=== PATIENT | male | born 1945 | race Caucasian/White ===

== ENCOUNTER 2017-02-02 06:33 | Inpatient (IN) | payer MEDICARE ==
[2017-01-31 07:42] VITALS: O2SAT 99
[2017-02-02] VITALS (21 sets, daily range): BP systolic 72–232; BP diastolic 60–119; PULSE 57–125; RESP 16–42; TEMP 97.6–98.6; O2SAT 85–100
[~2017-02-02] VITALS: Ht 182.9 cm; Wt 103.4 kg
[2017-02-02] MEDS ORDERED: FUROSEMIDE 100 MG/10 ML VIAL IVP ONE (06:45)
[2017-02-02] MEDS ORDERED: NITROGLYCERIN 2% OINT 1 GM PACKET TOP ONE (06:45)
[2017-02-02] MEDS ORDERED: SODIUM CHLORIDE 0.9% FLUSH 5 ML FLUSH IVF PRN ×2 (06:45→09:30)
--- NOTE | 2017-02-02 06:51 | PD ---
HPI Chief Complaint: sob Time Seen by Provider: 06:37 Travel History International Travel<30 days: No Contact w/Intl Traveler<30days: No History of Present Illness HPI Patient is a 71-year-old male with history of coronary disease, hypertension, hyperlipidemia, diabetes, CHF, GERD, and status post CABG in July,, presents to emergency room with complaints of shortness of breath. Patient reports that a few hours prior to presentation to emergency room, he woke up and felt short of breath. Patient reports that he feels as if he is fluid overloaded, reports history of CHF in the past. Patient reports that he has been feeling fine all week, patient reports that he is here visiting for bike week. PFSH Past Medical History Cardiac Catheterization: Yes Cardiovascular Problems: Yes High Cholesterol: Yes Congestive Heart Failure: Yes Coronary Artery Disease: Yes Diabetes: Yes Past Surgical History Coronary Artery Bypass Graft: Yes Social History Tobacco Use: No Allergies-Medications (Allergen,Severity, Reaction): Coded Allergies: Erythromycin (Verified Allergy, Unknown, 02/02/17) Heparin (Verified Allergy, Unknown, 02/02/17) Soma (Verified Allergy, Unknown, 02/02/17) Reported Meds & Prescriptions Reported Meds & Active Scripts Active Active Prescriptions or Reported Medications Unobtainable Review of Systems General / Constitutional: No: Fever Eyes: No: Visual changes HENT: No: Headaches Cardiovascular: Positive: Edema, No: Chest Pain or Discomfort Respiratory: Positive: Cough, Shortness of Breath Gastrointestinal: No: Abdominal Pain Genitourinary: No: Dysuria Musculoskeletal: No: Pain Skin: No Rash Neurologic: No: Weakness Psychiatric: No: Depression Endocrine: No: Polydipsia Hematologic/Lymphatic: No: Easy Bruising Physical Exam Narrative GENERAL: Patient in moderate distress SKIN: Warm and dry. Patient diaphoretic HEAD: Atraumatic. Normocephalic. EYES: Pupils equal and round. No scleral icterus. No injection or drainage. ENT: No nasal bleeding or discharge. Mucous membranes pink and moist. NECK: Trachea midline. No JVD. CARDIOVASCULAR: Tachycardic. No murmur appreciated. RESPIRATORY: Patient with rales to bilateral lung bases of lungs GASTROINTESTINAL: Abdomen soft, non-tender, nondistended. Hepatic and splenic margins not palpable. MUSCULOSKELETAL: No obvious deformities. No clubbing. No cyanosis. No edema. NEUROLOGICAL: Awake and alert. No obvious cranial nerve deficits. Motor grossly within normal limits. Normal speech. PSYCHIATRIC: Appropriate mood and affect; insight and judgment normal. Data Data Last Documented VS Vital Signs Date Time Temp Pulse Resp B/P Pulse Ox O2 Delivery O2 Flow Rate FiO2 02/02/17 06:46 100 BiPAP 02/02/17 06:46 32 100 02/02/17 06:36 97.6 125 232/119 Orders Complete Blood Count With Diff (02/02/17 06:37) Comprehensive Metabolic Panel (02/02/17 06:37) B-Type Natriuretic Peptide (02/02/17 06:37) Act Partial Throm Time (Ptt) (02/02/17 06:37) Prothrombin Time / Inr (Pt) (02/02/17 06:37) Magnesium (Mg) (02/02/17 06:37) Ckmb (Isoenzyme) Profile (02/02/17 06:37) Troponin I (02/02/17 06:37) Urinalysis - C+S If Indicated (02/02/17 06:37) Influenzae A/B Antigen (02/02/17 06:37) Blood Culture (02/02/17 06:37) Iv Access Insert/Monitor (02/02/17 06:37) Electrocardiogram (02/02/17 06:37) Ecg Monitoring (02/02/17 06:37) Oximetry (02/02/17 06:37) Oxygen Administration (02/02/17 06:37) Chest, Single Ap (02/02/17 06:37) Sodium Chloride 0.9% Flush (Ns Flush) (02/02/17 06:45) Furosemide Inj (Lasix Inj) (02/02/17 06:45) Resp Bipap / Cpap Non Invas Vt (02/02/17 06:37) Nitroglycerin 2% Oint (Nitroglycerin 2% (02/02/17 06:45) Urinary Catheter Insert/Apply (02/02/17 06:49) MDM Medical Decision Making Medical Screen Exam Complete: Yes Emergency Medical Condition: Yes Interpretation(s) EKG at 0643: Sinus tachycardia at 1 20 bpm, QT/QTc 329/400, left bundle branch block, patient presents to the ER with a previous EKG, left bundle branch block is not new Differential Diagnosis ACS, CHF exacerbation, arrhythmia, electrolyte abnormality, pneumonia, influenza Narrative Course Patient is a 71-year-old male who presents to emergency room with complaints of shortness of breath. Patient woke up 3 hours ago and felt short of breath and fluid overloaded. Patient does have a history of coronary disease, CHF, diabetes, hypertension, hyperlipidemia. Upon presentation to emergency room, patient diaphoretic, patient with rales on exam. Patient was placed on a pigs feet finisher, patient was placed on BiPAP. IV Lasix as well as nitroglycerin placed. Labs as well as x-ray chest ordered. Patient signed out to care of Dr. Silva at change of shift Scripts Unable to Obtain Active Prescriptions or Reported Meds Meliza Chand DO Feb 02, 2017 06:51
[2017-02-02 07:03] LABS: AUTOMATED NEUTROPHIL # 7.7 TH/MM3 (1.8-7.7); BASOPHIL # 0.1 TH/MM3 (0-0.2); BASOPHIL % 0.8 % (0.0-2.0); EOSINOPHIL # 0.4 TH/MM3 (0-0.4); HEMATOCRIT 45.1 % (39.0-51.0); HEMO FLAGS DIFF FINAL; LYMPH % 27.6 % (9.0-44.0); LYMPHOCYTE # 3.4 TH/MM3 (1.0-4.8); MEAN CELL VOLUME 95.9 FL (80.0-100.0); MEAN CORPUSCULAR HEMOGLOBIN 33.7 PG (27.0-34.0); MEAN CORPUSCULAR HGB CONC 35.2 % (32.0-36.0); MONO % 5.8 % (0.0-8.0); NEUT % 62.8 % (16.0-70.0); PLATELET COUNT 256 TH/MM3 (150-450); RED CELL DISTRIBUTION WIDTH 13.4 % (11.6-17.2); WHITE BLOOD COUNT 12.3 TH/MM3 (4.0-11.0)
--- NOTE | 2017-02-02 07:06 | PD ---
Physical Exam Date Seen by Provider: Feb 02, 2017 Time Seen by Provider: 07:04 Narrative The patient is a 71-year-old male was initially evaluated by the previous physician, please refer to the initial history, physical, diagnostic evaluation , and treatment modality plan. The patient was signed out at 7 AM a chest x- ray and laboratory evaluation pending for hypoxia and probable congestive heart failure exacerbation. Data Data Last Documented VS Vital Signs Date Time Temp Pulse Resp B/P Pulse Ox O2 Delivery O2 Flow Rate FiO2 02/02/17 08:37 57 132/63 100 BiPAP 100 02/02/17 06:55 34 02/02/17 06:36 97.6 Orders Complete Blood Count With Diff (02/02/17 06:37) Comprehensive Metabolic Panel (02/02/17 06:37) B-Type Natriuretic Peptide (02/02/17 06:37) Act Partial Throm Time (Ptt) (02/02/17 06:37) Prothrombin Time / Inr (Pt) (02/02/17 06:37) Magnesium (Mg) (02/02/17 06:37) Ckmb (Isoenzyme) Profile (02/02/17 06:37) Troponin I (02/02/17 06:37) Urinalysis - C+S If Indicated (02/02/17 06:37) Influenzae A/B Antigen (02/02/17 06:37) Blood Culture (02/02/17 06:37) Iv Access Insert/Monitor (02/02/17 06:37) Electrocardiogram (02/02/17 06:37) Ecg Monitoring (02/02/17 06:37) Oximetry (02/02/17 06:37) Oxygen Administration (02/02/17 06:37) Chest, Single Ap (02/02/17 06:37) Sodium Chloride 0.9% Flush (Ns Flush) (02/02/17 06:45) Furosemide Inj (Lasix Inj) (02/02/17 06:45) Resp Bipap / Cpap Non Invas Vt (02/02/17 06:37) Nitroglycerin 2% Oint (Nitroglycerin 2% (02/02/17 06:45) Urinary Catheter Insert/Apply (02/02/17 06:49) Aspirin (Aspirin) (02/02/17 07:30) CKMB (02/02/17 06:45) CKMB% (02/02/17 06:45) Enalaprilat Inj (Vasotec Inj) (02/02/17 08:00) Nitroglycerin-Dextrose Inj (Nitroglyceri (02/02/17 08:15) Admit Order (Ed Use Only) (02/02/17 09:12) Labs Laboratory Tests Test 02/02/17 06:45 White Blood Count 12.3 TH/MM3 Red Blood Count 4.70 MIL/MM3 Hemoglobin 15.9 GM/DL Hematocrit 45.1 % Mean Corpuscular Volume 95.9 FL Mean Corpuscular Hemoglobin 33.7 PG Mean Corpuscular Hemoglobin 35.2 % Concent Red Cell Distribution Width 13.4 % Platelet Count 256 TH/MM3 Mean Platelet Volume 9.1 FL Neutrophils (%) (Auto) 62.8 % Lymphocytes (%) (Auto) 27.6 % Monocytes (%) (Auto) 5.8 % Eosinophils (%) (Auto) 3.0 % Basophils (%) (Auto) 0.8 % Neutrophils # (Auto) 7.7 TH/MM3 Lymphocytes # (Auto) 3.4 TH/MM3 Monocytes # (Auto) 0.7 TH/MM3 Eosinophils # (Auto) 0.4 TH/MM3 Basophils # (Auto) 0.1 TH/MM3 CBC Comment DIFF FINAL Differential Comment Prothrombin Time 11.1 SEC Prothromb Time International 1.0 RATIO Ratio Activated Partial 25.1 SEC Thromboplast Time Urine Color LIGHT-YELLOW Urine Turbidity CLEAR Urine pH 7.0 Urine Specific [place] 1.012 Urine Protein 300 mg/dL Urine Glucose (UA) TRACE mg/dL Urine Ketones NEG mg/dL Urine Occult Blood TRACE Urine Nitrite NEG Urine Bilirubin NEG Urine Urobilinogen LESS THAN 2.0 MG/DL Urine Leukocyte Esterase NEG Urine RBC 8 /hpf Urine WBC 1 /hpf Urine Squamous Epithelial <1 /hpf Cells Urine Mucus FEW /lpf Microscopic Urinalysis Comment CULT NOT INDICATED Sodium Level 141 MEQ/L Potassium Level 4.7 MEQ/L Chloride Level 103 MEQ/L Carbon Dioxide Level 26.7 MEQ/L Anion Gap 11 MEQ/L Blood Urea Nitrogen 16 MG/DL Creatinine 0.99 MG/DL Estimat Glomerular Filtration 75 ML/MIN Rate Random Glucose 176 MG/DL Calcium Level 8.6 MG/DL Magnesium Level 1.4 MG/DL Total Bilirubin 0.8 MG/DL Aspartate Amino Transf 20 U/L (AST/SGOT) Alanine Aminotransferase 27 U/L (ALT/SGPT) Alkaline Phosphatase 104 U/L Total Creatine Kinase 218 U/L Creatine Kinase MB 4.3 NG/ML Troponin I 0.04 NG/ML B-Type Natriuretic Peptide 569 PG/ML Total Protein 8.8 GM/DL Albumin 4.4 GM/DL [facility] Medical Record Reviewed: Yes Supervised Visit with YOLETTE: No Interpretation(s) EKG reveals sinus tachycardia with a heart rate of 120. Intraventricular conduction delay with QRS of 156 ms. Chest x-ray reveals slight CHF. Laboratory Tests Test 02/02/17 06:45 White Blood Count 12.3 TH/MM3 Red Blood Count 4.70 MIL/MM3 Hemoglobin 15.9 GM/DL Hematocrit 45.1 % Mean Corpuscular Volume 95.9 FL Mean Corpuscular Hemoglobin 33.7 PG Mean Corpuscular Hemoglobin 35.2 % Concent Red Cell Distribution Width 13.4 % Platelet Count 256 TH/MM3 Mean Platelet Volume 9.1 FL Neutrophils (%) (Auto) 62.8 % Lymphocytes (%) (Auto) 27.6 % Monocytes (%) (Auto) 5.8 % Eosinophils (%) (Auto) 3.0 % Basophils (%) (Auto) 0.8 % Neutrophils # (Auto) 7.7 TH/MM3 Lymphocytes # (Auto) 3.4 TH/MM3 Monocytes # (Auto) 0.7 TH/MM3 Eosinophils # (Auto) 0.4 TH/MM3 Basophils # (Auto) 0.1 TH/MM3 CBC Comment DIFF FINAL Differential Comment Prothrombin Time 11.1 SEC Prothromb Time International 1.0 RATIO Ratio Activated Partial 25.1 SEC Thromboplast Time Urine Color LIGHT-YELLOW Urine Turbidity CLEAR Urine pH 7.0 Urine Specific [place] 1.012 Urine Protein 300 mg/dL Urine Glucose (UA) TRACE mg/dL Urine Ketones NEG mg/dL Urine Occult Blood TRACE Urine Nitrite NEG Urine Bilirubin NEG Urine Urobilinogen LESS THAN 2.0 MG/DL Urine Leukocyte Esterase NEG Urine RBC 8 /hpf Urine WBC 1 /hpf Urine Squamous Epithelial <1 /hpf Cells Urine Mucus FEW /lpf Microscopic Urinalysis Comment CULT NOT INDICATED Sodium Level 141 MEQ/L Potassium Level 4.7 MEQ/L Chloride Level 103 MEQ/L Carbon Dioxide Level 26.7 MEQ/L Anion Gap 11 MEQ/L Blood Urea Nitrogen 16 MG/DL Creatinine 0.99 MG/DL Estimat Glomerular Filtration 75 ML/MIN Rate Random Glucose 176 MG/DL Calcium Level 8.6 MG/DL Magnesium Level 1.4 MG/DL Total Bilirubin 0.8 MG/DL Aspartate Amino Transf 20 U/L (AST/SGOT) Alanine Aminotransferase 27 U/L (ALT/SGPT) Alkaline Phosphatase 104 U/L Total Creatine Kinase 218 U/L Creatine Kinase MB 4.3 NG/ML Troponin I 0.04 NG/ML B-Type Natriuretic Peptide 569 PG/ML Total Protein 8.8 GM/DL Albumin 4.4 GM/DL Last Impressions Chest X-Ray 02/02/17 0637 Signed Impressions: Service Date/Time: Thursday, February 02, 2017 06:41 - CONCLUSION: Slight CHF. KFernie Swanson MD Differential Diagnosis Differential diagnosis includes congestive heart failure, COPD, bronchitis, pneumonia, pulmonary embolism, acute coronary syndrome, pleural effusion. Narrative Course The patient was initially evaluated by the previous physician, please refer to the initial history, physical, diagnostic evaluation, and treatment modality plan. The patient was noted to be hypoxic at 88%, chest x-ray reveals what appears to be pulmonary edema. The patient was administered diuretics and placed on BiPAP with improvement of his symptoms. The patient will be admitted for hypoxia and congestive heart failure exacerbation. The patient wanted to try a trial off BiPAP, however, he was unable to tolerate nasal cannula, therefore, was placed on BiPAP. The patient's systolic blood pressure continued to be above 200 and diastolic above 100, therefore, patient was administered Vasotec. There was an improvement in the patient's blood pressure to systolic in the 130s. Therefore, nitro drip was held. Critical Care Narrative Aggregate critical care time was 35 minutes. Time to perform other separately billable procedures was not included in the critical care time. My time did not include minutes spent treating any other patients simultaneously or on activities that did not directly contribute to the patient's treatment. The services I provided to this patient were to treat and/or prevent clinically significant deterioration that could result in: Hypoxia, anoxia, congestive heart failure, flash pulmonary edema. I provided critical care services requiring my management, as noted below: Chart data review, documentation time, medication orders and management, vital sign assessments/reviewing monitor data, ordering and reviewing lab tests, ordering and interpreting/reviewing x-rays and diagnostic studies, care of the patient and discussion of the patient with the admitting physicians. Physician Communication Physician Communication The on-call medical service was paged for admission. I discussed the patient with the residents who agreed with admission. Diagnosis Primary Impression: Congestive heart failure Qualified Code: I50.9 - Acute on chronic congestive heart failure, unspecified congestive heart failure type Additional Impression: Hypoxia Admitting Information Admitting Physician Requests: Admit Condition: Stable Bola Silva MD Feb 02, 2017 07:06
[2017-02-02 07:11] LABS: APTT (PATIENT) 25.1 SEC (24.3-30.1); PROTHROMBIN TIME - PATIENT 11.1 SEC (9.8-11.6)
[2017-02-02] MEDS ORDERED: MAGN400T2 PO (07:14)
[2017-02-02] MEDS ORDERED: METF1000 PO (07:14)
[2017-02-02] MEDS ORDERED: GLIP5TAB8 PO (07:14)
[2017-02-02] MEDS ORDERED: MULT1TAB39 PO (07:14)
[2017-02-02] MEDS ORDERED: CLOP75TA PO (07:14)
[2017-02-02] MEDS ORDERED: POLYPOW5 PO (07:14)
[2017-02-02] MEDS ORDERED: FURO40TA PO (07:14)
[2017-02-02] MEDS ORDERED: IRONCAP2 PO (07:14)
[2017-02-02] MEDS ORDERED: PERC5TAB12 PO (07:14)
[2017-02-02] MEDS ORDERED: ATOR1TAB18 PO (07:14)
[2017-02-02] MEDS ORDERED: SITA1TAB2 PO (07:14)
[2017-02-02] MEDS ORDERED: DOCU100C PO (07:14)
[2017-02-02] MEDS ORDERED: ASPI1TAB69 PO (07:14)
[2017-02-02] MEDS ORDERED: PANT40TA3 PO (07:14)
[2017-02-02] MEDS ORDERED: POTA10TA8 PO (07:14)
[2017-02-02] MEDS ORDERED: SPIR25TA PO (07:14)
[2017-02-02] MEDS ORDERED: CARV6.252 PO (07:14)
[2017-02-02] MEDS ORDERED: LISI-519 PO (07:14)
--- NOTE | 2017-02-02 07:15 | RADRPT ---
EXAM DATE/TIME: 02/02/2017 06:41 [facility] COMPARISON: No previous studies available for comparison. INDICATIONS : Short of Breath MEDICAL HISTORY : Hypertension. Diabetes mellitus type II. Congestive heart failure. SURGICAL HISTORY : CABG. Cardiac Cath ENCOUNTER: Initial ACUITY: 1 day PAIN SCORE: 0/10 LOCATION: Bilateral chest FINDINGS: There is slight cardiomegaly and perivascular pulmonary edema. Focal consolidation is not seen. There is evidence for prior median sternotomy. CONCLUSION: Slight CHF. K. Vinny Swanson MD on February 02, 2017 at 7:13 Board Certified Radiologist. This report was verified electronically.
[2017-02-02 07:17] LABS: BLOOD, URINE TRACE (NEG); COMMENT (UR) CULT NOT INDICATED; CULTURE IF INDICATED CULT NOT INDICATED; GLUCOSE,URINE TRACE mg/dL (NEG); KETONE, URINE NEG (NEG); MUCUS URINE FEW /lpf (OCC); NITRITE,URINE NEG (NEG); SQUAMOUS EPITHELIAL CELL URINE <1 /hpf (0-5); URINE COLOR LIGHT-YELLOW (YELLW/STRAW)
[2017-02-02 07:18] LABS: ALT (GPT) 27 U/L (12-78); ANION GAP 11 MEQ/L (5-15); AST (GOT) 20 U/L (15-37); BICARBONATE 26.7 MEQ/L (21.0-32.0); BLOOD UREA NITROGEN 16 MG/DL (7-18); CHLORIDE 103 MEQ/L (98-107); GLOMERULAR FILTRATION RATE 75 ML/MIN (>89); MAGNESIUM 1.4 MG/DL (1.5-2.5); POTASSIUM 4.7 MEQ/L (3.5-5.1); SODIUM (NA) 141 MEQ/L (136-145)
[2017-02-02 07:25] LABS: ALKALINE PHOSPHATASE 104 U/L (45-117); CREATINE KINASE 218 U/L (39-308); TOTAL BILIRUBIN ADULT 0.8 MG/DL (0.2-1.0)
[2017-02-02] MEDS ORDERED: ASPIRIN 325 MG TAB PO ONE (07:30)
[2017-02-02 07:37] LABS: CKMB 4.3 NG/ML (0.5-3.6)
[2017-02-02] MEDS ORDERED: ENALAPRILAT 1.25 MG/ML VIAL IV PUSH ONE (08:00)
[2017-02-02] MEDS ORDERED: NITROGLYCERIN-DEXTROSE INJ 250 ML IV SCH (08:15)
--- NOTE | 2017-02-02 09:17 | HHI.HP ---
HPI Service Family Medicine Primary Care Physician No Primary Care Physician Admission Diagnosis congestive heart failure, hypoxia Diagnoses: International Travel<30 Days: No Contact w/Intl Traveler<30days: No Known Affected Area: No History of Present Illness Patient is a 71-year-old male with a PMH significant for CHF with a CABG 6 months ago, DM, HTN. Presented today due to acute onset of shortness of breath that happened at 0400 when he was walking to the bathroom. Associated with diaphoresis but no chest pain or nausea. Symptoms persisted over the next 2 hours which caused him to come to the ED. Patient reports that the last episode of similar symptoms was 6 months ago at which time he had a triple bypass. 2 days ago he did note lower extremity swelling and had some abdominal discomfort this morning. He had been eating and drinking more than usual as he is here for bike week. Patient otherwise denies any other symptoms except for dysuria that is new today. He does report that he ends up in hospital when he is on out of town trips. Symptoms have improved while being in the ED. (Bibiana Vega MD R2) Review of Systems Constitutional: COMPLAINS OF: Diaphoretic episodes, Chills, DENIES: Fever, Change in appetite Eyes: DENIES: Eye pain Ears, nose, mouth, throat: DENIES: Throat pain, Running Nose Respiratory: COMPLAINS OF: Shortness of breath Cardiovascular: COMPLAINS OF: Lower Extremity Edema, DENIES: Chest pain, Dyspnea on Exertion Gastrointestinal: COMPLAINS OF: Abdominal pain, DENIES: Black stools, Bloody stools Genitourinary: COMPLAINS OF: Dysuria, DENIES: Hematuria Musculoskeletal: DENIES: Joint pain Integumentary: DENIES: Rash Neurologic: DENIES: Headache (Bibiana Finney MD R2) Past Family Social History Past Medical History CAD with Triple CABG HTN HLD DM CHF GERD Chronic Back pain Past Surgical History Triple CABG in July, 1 cardiac stent Reported Medications Reported Meds & Active Scripts Active Reported Spironolactone 25 Mg Tab 12.5 Mg PO DAILY Januvia (Sitagliptin Phosphate) 100 Mg Tab 100 Mg PO DAILY Potassium Chloride CR (Potassium Chloride) 10 Meq Tab 20 Meq PO DAILY Polyethylene Glycol 3350 (Polyethylene Glycol 3350 (Bulk) 1 Pow Pow 17 Gm PO TID Percocet (Oxycodone-Acetaminophen) 5-325 mg Tab 1 Tab PO Q6H PRN Pantoprazole (Pantoprazole Sodium) 40 Mg Tab 40 Mg PO DAILY Multiple Vitamin/Minerals (Multiple Vitamins W/ Minerals) 1 Tab Tab 1 Tab PO DAILY Metformin (Metformin HCl) 1,000 Mg Tab 1,000 Mg PO BIDPC With meals Magnesium Oxide 400 Mg Tab 400 Mg PO DIRECTED Lisinopril 5 Mg Tab 5 Mg PO DAILY Iron Complex (Iron Combinations) 1 Cap Cap 150 Mg PO DAILY Glipizide 5 Mg Tab 5 Mg PO BIDAC Take 30 minutes before a meal Furosemide 40 Mg Tab 40 Mg PO DAILY Docusate Sodium 100 Mg Cap 100 Mg PO BID Clopidogrel (Clopidogrel Bisulfate) 75 Mg Tab 75 Mg PO DAILY Carvedilol 6.25 Mg Tab 6.25 Mg PO BID Atorvastatin (Atorvastatin Calcium) 80 Mg Tab 80 Mg PO HS Aspirin 81 Mg Tabdr 81 Mg PO DAILY (Bibiana Finney MD R2) Allergies: Coded Allergies: Erythromycin (Verified Allergy, Unknown, 02/02/17) Heparin (Verified Allergy, Unknown, 02/02/17) Soma (Verified Allergy, Unknown, 02/02/17) Family History Brother: DM Otherwise unknown Family history Social History Lives in [place] Tobacco: Quit 6mths ago, use to smoke 1ppd for many years Alcohol: On occasion Illicit: Tried marijuana for the first time last few days reportedly, otherwise denies illicit drug use. (Bibiana Finney MD R2) Physical Exam Vital Signs Vital Signs Date Time Temp Pulse Resp B/P Pulse Ox O2 Delivery O2 Flow Rate FiO2 02/02/17 08:37 57 132/63 100 BiPAP 100 02/02/17 06:55 34 BiPAP 02/02/17 06:46 100 BiPAP 02/02/17 06:46 32 100 BiPAP 100 02/02/17 06:40 100 100 02/02/17 06:36 97.6 125 42 232/119 85 Physical Exam GENERAL: This is a well-nourished, well-developed patient, in no apparent distress. Sitting in bed with BiPAP on but able to speak in complete sentences. SKIN: No rashes, ecchymoses or lesions. Cool and dry. Incision from right lower extremity venous graft site healing well but with some dry skin. EYES: Pupils equal round and reactive. Extraocular motions intact. No scleral icterus. No injection or drainage. NECK: No lymphadenopathy. CARDIOVASCULAR: Regular rate and rhythm without murmurs, gallops, or rubs. No chest pain on palpation. Sternal incision well healing. RESPIRATORY: Good air movement bilaterally. Diffuse wheezes bilaterally. Bibasilar crackles. No accessory muscle use GASTROINTESTINAL: Abdomen soft, non-tender, nondistended. No hepato-splenomegaly , or palpable masses. No guarding. MUSCULOSKELETAL: Extremities without clubbing, cyanosis, or edema. No calf tenderness. NEUROLOGICAL: Awake and alert. Motor and sensory grossly within normal limits. Normal speech. Laboratory Laboratory Tests Test 02/02/17 06:45 White Blood Count 12.3 Red Blood Count 4.70 Hemoglobin 15.9 Hematocrit 45.1 Mean Corpuscular Volume 95.9 Mean Corpuscular Hemoglobin 33.7 Mean Corpuscular Hemoglobin 35.2 Concent Red Cell Distribution Width 13.4 Platelet Count 256 Mean Platelet Volume 9.1 Neutrophils (%) (Auto) 62.8 Lymphocytes (%) (Auto) 27.6 Monocytes (%) (Auto) 5.8 Eosinophils (%) (Auto) 3.0 Basophils (%) (Auto) 0.8 Neutrophils # (Auto) 7.7 Lymphocytes # (Auto) 3.4 Monocytes # (Auto) 0.7 Eosinophils # (Auto) 0.4 Basophils # (Auto) 0.1 CBC Comment DIFF FINAL Differential Comment Prothrombin Time 11.1 Prothromb Time International 1.0 Ratio Activated Partial 25.1 Thromboplast Time Urine Color LIGHT-YELLOW Urine Turbidity CLEAR Urine pH 7.0 Urine Specific [place] 1.012 Urine Protein 300 Urine Glucose (UA) TRACE Urine Ketones NEG Urine Occult Blood TRACE Urine Nitrite NEG Urine Bilirubin NEG Urine Urobilinogen LESS THAN 2.0 Urine Leukocyte Esterase NEG Urine RBC 8 Urine WBC 1 Urine Squamous Epithelial <1 Cells Urine Mucus FEW Microscopic Urinalysis Comment CULT NOT INDICATED Sodium Level 141 Potassium Level 4.7 Chloride Level 103 Carbon Dioxide Level 26.7 Anion Gap 11 Blood Urea Nitrogen 16 Creatinine 0.99 Estimat Glomerular Filtration 75 Rate Random Glucose 176 Calcium Level 8.6 Magnesium Level 1.4 Total Bilirubin 0.8 Aspartate Amino Transf 20 (AST/SGOT) Alanine Aminotransferase 27 (ALT/SGPT) Alkaline Phosphatase 104 Total Creatine Kinase 218 Creatine Kinase MB 4.3 Troponin I 0.04 B-Type Natriuretic Peptide 569 Total Protein 8.8 Albumin 4.4 Date/Time Procedure Status Source Growth 02/02/17 06:45 Aerobic Blood Culture Received Blood Peripheral Pending 02/02/17 06:45 Anaerobic Blood Culture Received Blood Peripheral Pending (Bibiana Finney MD R2) Result Diagram: 02/02/17 0645 02/02/17 0645 Imaging Last Impressions Chest X-Ray 02/02/17 0637 Signed Impressions: Service Date/Time: Thursday, February 02, 2017 06:41 - CONCLUSION: Slight CHF. Delores. Vinny Swanson MD (Bibiana Finney MD R2) Assessment and Plan Assessment and Plan 71-year-old male with a significant history of cardiac disease and CABG. Admitted for CHF exacerbation. Code Status Full Discussed Condition With Dr. Burleson and Dr. Aquino (Bibiana Finney MD R2) Attending Attestation Patient seen and examined. Case reviewed and discussed with the resident team. Agree with plan of care as discussed with me and documented in the resident note. (Luci Aquino MD) Problem List: (1) Congestive heart failure Status: Acute Plan: Significant cardiac history with a triple bypass 6 months ago. Reports last echo showed a reduced EF of unknown percent but stated he did not require a pacemaker. Exacerbation likely due to increased salt and fluid intake. Found to be hypoxic on admission that required BiPAP. Patient able to speak in complete sentences and is in no acute distress on initial exam. -BNP elevated to around 500 with CXR showing mild CHF (poor image) -Mild Leukocytosis, continue to monitor -UA, CMP, CBC, Coag otherwise unremarkable -Blood cultures ordered: pending -Old EKG showed LBBB, Repeat also shows LBBB, troponin unremarkable * ACS evaluation -Echo ordered -Counseled about salt restriction in diet -Monitor I&O -Cardiac telemetry Medications: * Lasix 80 mg IV 1 in ED * Lasix 40 mg IV BID * Aspirin daily * Plavix * Lisinopril * Spironolactone * Lipitor * Coreg * Albuterol + Duonebs (2) Hypoxia Status: Acute Plan: Found to be hypoxic on admission that required BiPAP. -VBG ordered -Wean off of O2 (3) CAD (coronary artery disease) Status: Acute Plan: History significant for triple bypass 6 months ago. -Please see plan above (4) HTN (hypertension) Status: Chronic Plan: BP elevated on admission with a high of 232 systolic. Responded to Vasotec and is now WNL (5) DM (diabetes mellitus) Status: Chronic Plan: Held home oral medications -sliding scale (6) Nutrition, metabolism, and development symptoms Status: Acute Plan: Diet: Heart healthy with fluid and salt restrictions (1.5L and 2mg respectively) Electrolytes: Low magnesium, repeated 1 with 1GM. Restart KCL daily tomorrow Fluids: none DVT PPX: SCDs due to reported heparin allergy GI PPX: home omeprazole (Bibiana Finney MD R2) Physician Certification 2 Midnight Certification Type: Admission for Inpatient Services Order for Inpatient Services The services are ordered in accordance with Medicare regulations or non- Medicare payer requirements, as applicable. In the case of services not specified as inpatient-only, they are appropriately provided as inpatient services in accordance with the 2-midnight benchmark. Estimated LOS (days): 2 days is the estimated time the patient will need to remain in the hospital, assuming treatment plan goals are met and no additional complications. Post-Hospital Plan: Home (Bibiana Finney MD R2) Problem Qualifiers (1) Congestive heart failure: Qualified Code: I50.9 - Acute on chronic congestive heart failure, unspecified congestive heart failure type (2) DM (diabetes mellitus): Bibiana Finney MD R2 Feb 02, 2017 09:16 Luci Aquino MD Feb 02, 2017 11:25
[2017-02-02] MEDS ORDERED: ENOXAPARIN SODIUM 40 MG/0.4 ML SYRINGE SQ SCH (09:30)
[2017-02-02] MEDS ORDERED: ONDANSETRON HCL 4 MG/2 ML VIAL IV PRN (09:45)
[2017-02-02] MEDS ORDERED: hydrALAZINE HCL 20 MG/ML VIAL IV PRN (09:45)
[2017-02-02] MEDS ORDERED: ACETAMINOPHEN 325 MG TAB PO PRN ×2 (09:45→10:00)
[2017-02-02] MEDS ORDERED: GLUCAGON 1 MG/ML VIAL OTHER PRN (10:00)
[2017-02-02] MEDS ORDERED: DEXTROSE 50% IN WATER 50 ML VIAL(D50) IV PUSH PRN (10:00)
--- NOTE | 2017-02-02 10:02 | HHI.FPPN ---
Subjective Remarks Pt. seen examined and discussed with the Medicine Team. This is a 71 yo [place] here for [place], awoke this a.m. with chest pressure, SOB and diaphoresis. He had a CABG 3 months ago in [place]. He is known diabetic, hypertensive, and CHF. He brought records and has reported a recent echo, though doesn't know his EF. Denies a known excessive salt load dietary-packer, but did drink 2 large beers last night. He is staying with friends so is not in control of meals. He had CABG three-vessel 6 months ago in [place]. Now pt. feels more comfortable; chest pain has abated and he is not experiencing SOB (on BiPap). See H&P for this admission for additional historical details, including past, family and social history. Objective Vitals Vital Signs Date Time Temp Pulse Resp B/P Pulse Ox O2 Delivery O2 Flow Rate FiO2 02/02/17 08:37 57 132/63 100 BiPAP 100 02/02/17 06:55 34 BiPAP 02/02/17 06:46 100 BiPAP 02/02/17 06:46 32 100 BiPAP 100 02/02/17 06:40 100 100 02/02/17 06:36 97.6 125 42 232/119 85 Result Diagram: 02/02/17 0645 02/02/17 0645 Other Results Laboratory Tests Test 02/02/17 02/02/17 06:45 10:44 White Blood Count 12.3 TH/MM3 Red Blood Count 4.70 MIL/MM3 Hemoglobin 15.9 GM/DL Hematocrit 45.1 % Mean Corpuscular Volume 95.9 FL Mean Corpuscular Hemoglobin 33.7 PG Mean Corpuscular Hemoglobin 35.2 % Concent Red Cell Distribution Width 13.4 % Platelet Count 256 TH/MM3 Mean Platelet Volume 9.1 FL Neutrophils (%) (Auto) 62.8 % Lymphocytes (%) (Auto) 27.6 % Monocytes (%) (Auto) 5.8 % Eosinophils (%) (Auto) 3.0 % Basophils (%) (Auto) 0.8 % Neutrophils # (Auto) 7.7 TH/MM3 Lymphocytes # (Auto) 3.4 TH/MM3 Monocytes # (Auto) 0.7 TH/MM3 Eosinophils # (Auto) 0.4 TH/MM3 Basophils # (Auto) 0.1 TH/MM3 CBC Comment DIFF FINAL Differential Comment Prothrombin Time 11.1 SEC Prothromb Time International 1.0 RATIO Ratio Activated Partial 25.1 SEC Thromboplast Time Urine Color LIGHT-YELLOW Urine Turbidity CLEAR Urine pH 7.0 Urine Specific [place] 1.012 Urine Protein 300 mg/dL Urine Glucose (UA) TRACE mg/dL Urine Ketones NEG mg/dL Urine Occult Blood TRACE Urine Nitrite NEG Urine Bilirubin NEG Urine Urobilinogen LESS THAN 2.0 MG/DL Urine Leukocyte Esterase NEG Urine RBC 8 /hpf Urine WBC 1 /hpf Urine Squamous Epithelial <1 /hpf Cells Urine Mucus FEW /lpf Microscopic Urinalysis Comment CULT NOT INDICATED Sodium Level 141 MEQ/L Potassium Level 4.7 MEQ/L Chloride Level 103 MEQ/L Carbon Dioxide Level 26.7 MEQ/L Anion Gap 11 MEQ/L Blood Urea Nitrogen 16 MG/DL Creatinine 0.99 MG/DL Estimat Glomerular Filtration 75 ML/MIN Rate Random Glucose 176 MG/DL Calcium Level 8.6 MG/DL Magnesium Level 1.4 MG/DL Total Bilirubin 0.8 MG/DL Aspartate Amino Transf 20 U/L (AST/SGOT) Alanine Aminotransferase 27 U/L (ALT/SGPT) Alkaline Phosphatase 104 U/L Total Creatine Kinase 218 U/L Creatine Kinase MB 4.3 NG/ML Troponin I 0.04 NG/ML B-Type Natriuretic Peptide 569 PG/ML Total Protein 8.8 GM/DL Albumin 4.4 GM/DL Blood Gas Puncture Site I.V. Blood Gas Patient Temperature 98.6 Venous Blood pH 7.37 Venous Blood Partial Pressure 56 mmHg CO2 Venous Blood Partial Pressure 22 mmHg O2 Venous Blood HCO3 31 mmol/L Venous Blood Oxygen Saturation 29 % Venous Blood Oxygen Content 5.3 Vol % Venous Blood Base Excess 5.8 mmol/L Oxygen Delivery Device NASAL CANNULA Blood Gas Liter Flow 4 L/M Objective Remarks O. CONSTITUTIONAL/GEN: normally nourished, in NAD. On Bipap. EYES: conjunctiva normal, PERRLA, EOMI. NECK: trachea midline LUNGS: clear A-P, on Bipap.. CARDIOVASCULAR: RR without murmur or gallop. No significant edema. GI/ABD: soft without masses, without organomegaly. Protuberant, BS faint. NEURO: No focal deficits. SKIN: color normal, no rashes noted. HEME/LYMPH: no bruising, petechia or significant adenopathy MUSC: back is normal in appearance. Extremities are normal in appearance, scars RLE from CABG donor graft. PSYCH/MENTAL STATUS: Alert and oriented x 3. A/P Assessment and Plan CP, SOB and diaphoresis in male with hx CHF, CABG, DM and HTN. See orders for plan. Attending Attestation Patient seen and examined. Case reviewed and discussed with the resident team. Agree with plan of care as discussed with me and documented in the resident note. Luci Aquino MD Feb 02, 2017 10:02
[2017-02-02] MEDS ORDERED: PILL SPLITTER OTHER PRN (10:30)
[2017-02-02 10:54] LABS: BLOOD GAS VENOUS BASE EXCESS 5.8 mmol/L (-2-2); BLOOD GAS VENOUS HCO3 31 mmol/L (22-26); BLOOD GAS VENOUS O2 CONTENT 5.3 Vol % (9.0-17.0); BLOOD GAS VENOUS O2 HGB SAT 29 % (70-76); BLOOD GAS VENOUS PCO2 56 mmHg (44-48); BLOOD GAS VENOUS pH 7.37 (7.360-7.400); TEMP CORR TO 98.6
[2017-02-02 10:55] LABS: BLOOD GAS VENOUS PO2 22 mmHg (35-40); CRITICAL VALUE YES; DRAW SITE I.V.; LITER FLOW 4 L/M; OXYGEN DEVICE NASAL CANNULA; STAT YES
[2017-02-02] MEDS ORDERED: ENALAPRILAT 1.25 MG/ML VIAL IV PRN (11:00)
[2017-02-02] MEDS ORDERED: RESP: ALBUTEROL 2.5 MG/3 ML NEB (PRN) INH (11:15)
[2017-02-02 11:22] LABS: BLOOD GAS BASE EXCESS 2.9 mmol/L (-2-2); BLOOD GAS HCO3 27 mmol/L (22-26); BLOOD GAS METHEMOGLOBIN 0.7 % (0-2); BLOOD GAS O2 HGB SATURATION 95 % (90-100); BLOOD GAS OXYGEN CONTENT 17.5 Vol % (12.0-20.0); BLOOD GAS PCO2 39 mmHg (38-42); BLOOD GAS PO2 87 mmHG (61-120); TEMP CORR TO 98.6
[2017-02-02 11:23] LABS: CRITICAL VALUE NO; DRAW SITE RT RADIAL; LITER FLOW 4 L/M; NUMBER OF ARTERIAL PUNCTURES 1; OXYGEN DEVICE NASAL CANNULA; STAT YES
[2017-02-02] MEDS ORDERED: MAGNESIUM SULFATE 1 GM PREMIX 100 ML IV ONE (12:00)
[2017-02-02] MEDS: RESP: ALBUTEROL 2.5 MG/IPRATROPIUM 0.5 MG NEB (SCH) INH ×3 (12:18→21:42)
[2017-02-02] MEDS: LISINOPRIL 5 MG TAB PO SCH (13:59)
[2017-02-02] MEDS: CLOPIDOGREL 75 MG TAB PO SCH (13:59)
[2017-02-02] MEDS: CARVEDILOL 6.25 MG TAB PO SCH ×2 (13:59→21:35)
[2017-02-02] MEDS: SPIRONOLACTONE 25 MG TAB PO SCH (14:00)
[2017-02-02] MEDS: INSULIN ASPART SUPPLEMENTAL SCALE SQ SCH ×2 (16:16→21:37)
[2017-02-02] MEDS: POLYETHYLENE GLYCOL 17 GM PKG PO SCH (16:16)
--- NOTE | 2017-02-02 17:47 | EC ---
Study Study Date:02/02/2017 STUDY CONCLUSIONS SUMMARY - Left ventricle: The cavity size was mildly dilated. Wall thickness was increased in a pattern of moderate LVH. Systolic function was moderately reduced. The estimated ejection fraction was 35%. Wall motion was normal; there were no regional wall motion abnormalities. - Aortic valve: Trileaflet; mildly thickened, mildly calcified leaflets. Mild regurgitation. - Mitral valve: Mild regurgitation. - Left atrium: The atrium was mildly dilated. - Tricuspid valve: Mild regurgitation. If LV function is below 40, please consider prescribing an ACEI or ARB or document rationale for non-use. PROCEDURE DATA STUDY STATUS: Elective. Procedure: Transthoracic echocardiography. Image quality was good. Scanning was performed from the parasternal, apical, and subcostal acoustic windows. Study completion: The patient tolerated the procedure well. Transthoracic echocardiography. M-mode, complete 2D, complete spectral Doppler, and color Doppler. Height: Height: 72in. Weight: Weight: 230.5lb. Body mass index: BMI: 31.3kg/m^2. Body surface area: BSA: 2.26m^2. Patient status: Inpatient. CARDIAC ANATOMY LEFT VENTRICLE: The cavity size was mildly dilated. Wall thickness was increased in a pattern of moderate LVH. Systolic function was moderately reduced. The estimated ejection fraction was 35%. Wall motion was normal; there were no regional wall motion abnormalities. AORTIC VALVE: Trileaflet; mildly thickened, mildly calcified leaflets. Doppler: Transvalvular velocity was within the normal range. There was no stenosis. Mild regurgitation. Peak gradient: 11mm Hg (S). AORTA: Aortic root: The aortic root was normal in size. MITRAL VALVE: Structurally normal valve. Doppler: Transvalvular velocity was within the normal range. There was no evidence for stenosis. Mild regurgitation. Valve area by pressure half-time: 2.42cm^2. Indexed valve area by pressure half-time: 1.07cm^2/m^2. Mean gradient: 42mm Hg (D). LEFT ATRIUM: The atrium was mildly dilated. RIGHT VENTRICLE: The cavity size was normal. Wall thickness was normal. PULMONIC VALVE: Doppler: Transvalvular velocity was within the normal range. There was no evidence for stenosis. No regurgitation. TRICUSPID VALVE: Structurally normal valve. Doppler: Transvalvular velocity was within the normal range. Mild regurgitation. Peak gradient: 35mm Hg (D). PULMONARY ARTERY: The main pulmonary artery was normal-sized. Systolic pressure was within the normal range. RIGHT ATRIUM: The atrium was normal in size. PERICARDIUM: There was no pericardial effusion. SYSTEMIC VEINS: Inferior vena cava: The vessel was normal in size. Patient weight: 230.5lb _Ejection fraction:_ 65-75% _Fractional shortening:_ 32% up to 5Kg 5-11.5Kg 11.6-22.9Kg 23-45Kg 45-57Kg Aortic Root 7-13 <17 13-22 17-27 17-27 LA diam 6-13 <23 24-38 33-47 37-40 RVID 10-17 7-15 7-15 7-18 8-17 LVIDd 12-22 <32 24-38 33-47 37-40 LVPW 2-4 3-6 5-7 6-8 7-8 IVS 2-4 3-6 5-7 6-8 7-8 BASIC MEASUREMENTS ADULT NORMAL Left ventricle LV internal dimension, ED, chordal 51.7 mm 43-52 level, PLAX LV internal dimension, ES, chordal 34.8 mm 23-38 level, PLAX Fractional shortening, chordal level, 33 % >29 PLAX LV posterior wall thickness, ED 18.3 mm IVS/LVPW ratio, ED 0.99 <1.3 Volume, ED, MOD, 1-plane 184 ml Volume, ES, MOD, 1-plane 86 ml Ejection fraction, MOD, 1-plane 53 % Stroke volume, MOD, 1-plane 98 ml Volume index, ED, MOD, 1-plane 81 ml/m^2 Volume index, ES, MOD, 1-plane 38 ml/m^2 Stroke index, MOD, 1-plane 43.4 ml/m^2 Ventricular septum Septal thickness, ED 18.2 mm Aortic valve Leaflet separation 18 mm 15-26 Left atrium Anterior-posterior dimension 41 mm Anterior-posterior dimension index 1.81 cm/m^2 <2.2 BASIC MEASUREMENTS ADULT NORMAL Aortic valve Leaflet separation 18 mm 15-26 Aorta Root diameter, ED 28 mm 20-37 DOPPLER MEASUREMENTS ADULT NORMAL Aortic valve Peak velocity, S 167 cm/s VTI, S 163 cm Peak gradient, S 11 mm Hg Regurgitant velocity, ED 306 cm/s Regurgitant deceleration 1690 cm/s^2 Regurgitant pressure half-time 529 ms Regurgitant gradient, ED 37 mm Hg Mitral valve Peak E-wave velocity 60.2 cm/s Peak A-wave velocity 89.3 cm/s Mean velocity, D 301 cm/s Pressure half-time 91 ms Mean gradient, D 42 mm Hg Peak E/A ratio 0.7 Valve area, pressure half-time 2.42 cm^2 Valve area index, pressure half-time 1.07 cm^2/m^2 Tricuspid valve Peak gradient, D 35 mm Hg Maximal inflow velocity 294 cm/s Systemic veins Estimated CVP 10 mm Hg Pulmonic valve Peak velocity, S 118 cm/s LEGEND: Mean values are shown as u=mean value. Asterisk (*) alberto values outside specified normal range. Prepared and signed by Amisha Wise [id number]
[2017-02-02] MEDS ORDERED: FUROSEMIDE 40 MG/4 ML VIAL IVP SCH (18:00)
[2017-02-02] MEDS: FUROSEMIDE 40 MG/4 ML VIAL IVP SCH (18:34)
--- NOTE | 2017-02-02 19:44 | EKG ---
Date Performed: 02/02/2017 Time Performed: 06:42:20 PTAGE: 71 years EKG: SINUS TACHYCARDIA INTRAVENTRICULAR CONDUCTION DELAY ABNORMAL ECG NO PREVIOUS TRACING DOCTOR: Amisha Wise Interpretating Date/Time 02/02/2017 19:43:06
[2017-02-02] MEDS ORDERED: CARVEDILOL 6.25 MG TAB PO SCH (21:00)
[2017-02-02] MEDS: SODIUM CHLORIDE 0.9% FLUSH 5 ML FLUSH IVF SCH (21:33)
[2017-02-02] MEDS: ATORVASTATIN 80 MG TAB PO SCH (21:33)
[2017-02-02] MEDS: DOCUSATE SODIUM 100 MG CAP PO SCH (21:33)
--- NOTE | 2017-02-02 22:30 | HHI.FPPN ---
Addendum to progress note ADDENDUM Reason for addendum: Additonal documentation Additional information Subjective: Residents were paged about pt's 3rd troponin which was elevated at 0.42. Previous troponins were 0.04 and 0.19. I stopped by to see the pt who was asymptomatic. He had no chest pain or shortness of breath and was breathing comfortably on 2L by NC. He was previously on BiPAP. Objective: Vitals were 97.9F, 141/60, 57 HR, 16 RR, 96% on RA (taken at 11pm) General: Sleeping comfortably in bed, awoken easily for examination Lungs: CTAB. No accessory muscle use Heart: Regular rate and rhythm, no murmurs rubs or gallops Assessment: 71-year-old male with a significant history of cardiac disease and CABG admitted for CHF exacerbation now with elevated troponin that have consistently increased on trend. Patient remains asymptomatic with no chest pain or shortness of breath symptoms. Plan: -EKG was obtained and did not show ST elevation. Possible AFIB but some low voltage discernible P-waves. -Cardiology consult due increased troponin that more than doubled over a 6-hour period. However, since the patient was asymptomatic, we decided not to call the on-call metal sprayer. Patient does have a history of left bundle branch block and presented with CHF exacerbation which could account for his elevated troponins. Discussed with Dr. Wilmer Newby,Debo Sanches MD R1 Feb 02, 2017 22:30
[2017-02-03] VITALS (30 sets, daily range): BP systolic 120–162; BP diastolic 53–79; PULSE 52–78; RESP 16–18; TEMP 97.4–98.5; O2SAT 94–97
[2017-02-03] MEDS: RESP: ALBUTEROL 2.5 MG/IPRATROPIUM 0.5 MG NEB (SCH) INH ×4 (03:42→21:09)
[2017-02-03] MEDS: INSULIN ASPART SUPPLEMENTAL SCALE SQ SCH ×4 (06:25→21:05)
[2017-02-03 06:56] LABS: AUTOMATED NEUTROPHIL # 6.3 TH/MM3 (1.8-7.7); BASOPHIL # 0.1 TH/MM3 (0-0.2); BASOPHIL % 0.6 % (0.0-2.0); EOSINOPHIL # 0.2 TH/MM3 (0-0.4); EOSINOPHIL % 2.5 % (0.0-4.0); HEMO FLAGS DIFF FINAL; LYMPH % 17.6 % (9.0-44.0); LYMPHOCYTE # 1.5 TH/MM3 (1.0-4.8); MEAN CELL VOLUME 95.3 FL (80.0-100.0); MEAN CORPUSCULAR HEMOGLOBIN 33.6 PG (27.0-34.0); MEAN CORPUSCULAR HGB CONC 35.3 % (32.0-36.0); MONO % 7.1 % (0.0-8.0); NEUT % 72.2 % (16.0-70.0); PLATELET COUNT 172 TH/MM3 (150-450); RED BLOOD COUNT 3.56 MIL/MM3 (4.50-5.90); RED CELL DISTRIBUTION WIDTH 13.3 % (11.6-17.2); WHITE BLOOD COUNT 8.7 TH/MM3 (4.0-11.0)
[2017-02-03 07:27] LABS: BICARBONATE 29.8 MEQ/L (21.0-32.0); POTASSIUM 3.4 MEQ/L (3.5-5.1)
[2017-02-03] MEDS: PANTOPRAZOLE SOD 40 MG DELAYED RELEASE TAB PO SCH (08:11)
[2017-02-03] MEDS: SPIRONOLACTONE 25 MG TAB PO SCH (08:12)
[2017-02-03] MEDS: ASPIRIN EC 81 MG TABEC PO SCH (08:12)
[2017-02-03] MEDS: CLOPIDOGREL 75 MG TAB PO SCH (08:12)
[2017-02-03] MEDS: DOCUSATE SODIUM 100 MG CAP PO SCH ×2 (08:12→21:04)
[2017-02-03] MEDS: POLYETHYLENE GLYCOL 17 GM PKG PO SCH (08:12)
[2017-02-03] MEDS: CARVEDILOL 6.25 MG TAB PO SCH ×2 (08:12→21:04)
[2017-02-03] MEDS: FUROSEMIDE 40 MG/4 ML VIAL IVP SCH (08:13)
[2017-02-03] MEDS: SODIUM CHLORIDE 0.9% FLUSH 5 ML FLUSH IVF SCH ×2 (08:13→21:05)
[2017-02-03] MEDS: LISINOPRIL 5 MG TAB PO SCH (08:14)
[2017-02-03] MEDS ORDERED: LISINOPRIL 5 MG TAB PO SCH (09:00)
[2017-02-03] MEDS ORDERED: ASPIRIN 81 MG CHEW TAB CHEW SCH (09:00)
[2017-02-03] MEDS ORDERED: CLOPIDOGREL 75 MG TAB PO SCH (09:00)
[2017-02-03] MEDS ORDERED: POTASSIUM CHLORIDE 10 MEQ CAP PO SCH (09:00)
[2017-02-03] MEDS ORDERED: SPIRONOLACTONE 25 MG TAB PO SCH (09:00)
--- NOTE | 2017-02-03 11:45 | HHI.FPPN ---
Subjective Remarks No acute events overnight but night team did evaluate patient as his troponins did trend upward but he remained asymptomatic. Vital signs unremarkable with exception of this morning with a high systolic BP of 162. Patient is currently on room air with adequate saturation. This morning he reports feeling much better and is ready to go. Denies any chest pain. Has no complaints and only wants to eat his breakfast. (Bibiana Finney MD R2) Objective Vitals Vital Signs Date Time Temp Pulse Resp B/P Pulse Ox O2 Delivery O2 Flow Rate FiO2 02/03/17 10:00 61 02/03/17 09:26 96 21 02/03/17 09:00 59 02/03/17 08:24 95 Room Air 02/03/17 08:18 97.7 60 18 162/79 95 02/03/17 08:00 58 02/03/17 07:36 66 02/03/17 06:03 56 02/03/17 05:08 57 02/03/17 04:00 62 02/03/17 03:45 97.4 61 16 147/62 95 02/03/17 03:43 95 Nasal Cannula 2.00 02/03/17 03:15 60 02/03/17 02:07 53 02/03/17 01:11 59 02/03/17 00:00 54 02/02/17 23:30 97.9 57 16 141/60 96 02/02/17 23:16 60 02/02/17 23:00 61 02/02/17 22:00 58 02/02/17 21:42 92 Nasal Cannula 2.00 02/02/17 21:00 58 02/02/17 20:00 98.6 61 16 147/63 95 02/02/17 20:00 95 Nasal Cannula 2.00 02/02/17 20:00 58 02/02/17 19:25 61 02/02/17 19:00 60 02/02/17 16:00 58 02/02/17 15:55 98.2 59 16 72/80 96 02/02/17 15:55 59 02/02/17 15:55 59 02/02/17 15:00 60 02/02/17 14:00 66 144/67 02/02/17 14:00 62 02/02/17 13:00 98.0 68 18 163/80 98 02/02/17 13:00 68 02/02/17 13:00 64 02/02/17 13:00 98 Nasal Cannula 2.00 02/02/17 12:25 132/62 97 02/02/17 12:18 92 Nasal Cannula 2.00 I/O 02/02/17 02/02/17 02/02/17 02/03/17 02/03/17 02/03/17 07:00 15:00 23:00 07:00 15:00 23:00 Intake Total 850 ml 240 ml Output Total 1800 ml 1250 ml Balance -950 ml -1010 ml Intake Oral 850 ml 240 ml Output Urine Total 1800 ml 1250 ml # Bowel Movements 0 (Bibiana Finney MD R2) Result Diagram: 02/03/17 0600 02/03/17 06 Objective Remarks GEN: Well-developed, well-nourished patient. No acute distress. Sitting up in bed. CV: Distant heart sounds but with regular rate and rhythm without obvious murmurs. LUNGS: Distant breath sounds but clear to auscultation bilaterally. No wheezes, rales, rhonchi. No accessory muscle use. EXT: No edema. No calf tenderness. NEURO/PSYCH: Awake, alert. Appropriate insight and judgment. Normal speech ( Bibiana Finney MD R2) A/P Assessment and Plan 71-year-old male with a significant history of cardiac disease and CABG. Admitted for CHF exacerbation. Discharge Planning Today or tomorrow pending cardiology clearance (Bibiana Finney MD R2) Attending Attestation Patient seen and examined. Case reviewed and discussed with the resident team. Agree with plan of care as discussed with me and documented in the resident note. (Luci Aquino MD) Problem List: (1) Congestive heart failure Status: Acute Plan: Significant cardiac history with a triple bypass 6 months ago. Exacerbation likely due to increased salt and fluid intake. Found to be hypoxic on admission that required BiPAP but has now been weaned to room air in no respiratory distress. -Echo: EF of 35%. -BNP elevated to around 500 with CXR showing mild CHF (poor image) -Mild Leukocytosis has resolved -Blood cultures negative 1 day -Old EKG showed LBBB * ACS evaluation showed uptrending troponins but did decrease this morning. Patient was otherwise asymptomatic throughout the night. Likely due to CHF -Monitor I&O -Cardiac telemetry Cardiology consulted: appreciate recommendations Medications: * Lasix 80 mg IV 1 in ED * Lasix 40 mg IV BID discontinued, resume home Lasix 40 daily * Aspirin daily * Plavix * Lisinopril * Spironolactone * Lipitor * Coreg * Albuterol + Duonebs (2) Hypoxia Status: Resolved Plan: Found to be hypoxic on admission that required BiPAP. -VBG/ABG grossly unremarkable (3) CAD (coronary artery disease) Status: Acute Plan: History significant for triple bypass 6 months ago. -Please see plan above (4) HTN (hypertension) Status: Chronic Plan: Continuing home medications -Vasotec as needed (5) DM (diabetes mellitus) Status: Chronic Plan: Held home oral medications -sliding scale (6) Nutrition, metabolism, and development symptoms Status: Acute Plan: Diet: Heart healthy with fluid and salt restrictions (1.5L and 2mg respectively) Electrolytes: Mild hypokalemia, KCl 40 mEq 1, resume potassium replacement 40KCL daily Fluids: none DVT PPX: SCDs due to reported heparin allergy GI PPX: home omeprazole (Bibiana Finney MD R2) Problem Qualifiers (1) Congestive heart failure: Qualified Code: I50.9 - Acute on chronic congestive heart failure, unspecified congestive heart failure type (2) DM (diabetes mellitus): Bibiana Finney MD R2 Feb 03, 2017 11:45 Luci Aquino MD Feb 03, 2017 12:03
--- NOTE | 2017-02-03 11:48 | HHI.DCPOC ---
Discharge Care Plan Diagnosis: (1) Congestive heart failure (2) Hypoxia (3) CAD (coronary artery disease) Goals to Promote Your Health * To prevent worsening of your condition and complications * To maintain your health at the optimal level Directions to Meet Your Goals Take your medications as prescribed Follow your dietary instruction Follow activity as directed Keep your appointments as scheduled Take your immunizations and boosters as scheduled If your symptoms worsen call your PCP, if no PCP go to Urgent Care Center or Emergency Room Smoking is Dangerous to Your Health. Avoid second hand smoke Call the 24-hour hour crisis hotline for domestic abuse at Bibiana Finney MD R2 Feb 03, 2017 11:48
--- NOTE | 2017-02-03 13:54 | EKG ---
Date Performed: 02/02/2017 Time Performed: 22:29:08 PTAGE: 71 years EKG: Sinus bradycardia with borderline 1st degree A-V block Left bundle branch block Abnormal EC G PREVIOUS TRACING : 02/02/2017 06.42 DOCTOR: Stephan Gonzalez Interpretating Date/Time 02/03/2017 13:50:00
--- NOTE | 2017-02-03 20:13 | MB ---
cc: WALDO MONTALVO DATE OF CONSULTATION: 02/03/2017. HISTORY OF PRESENT ILLNESS: Mr. Peers is a 71-year-old white male with a history of three-vessel coronary bypass six months ago. He had shortness of breath but no chest pain prior to the bypass. He presented today after he developed acute shortness of breath at four o'clock this morning when he was walking to the bathroom. He has not had any chest pain. He was having similar episodes prior to his surgery. He has been noncompliant with his low-salt diet since he has been travelling from [place] for the [employer]. His symptoms improved with diuresis. His troponin is mildly elevated. PAST MEDICAL HISTORY: His past medical history is positive for: 1. Coronary artery disease status post three vessel bypass six months ago in [place]. 2. Hypertension. 3. Dyslipidemia. 4. Diabetes mellitus. 5. Congestive heart failure. 6. Gastroesophageal reflux disease (GERD). 7. Chronic back pain. 8. Cardiomyopathy. 9. History of coronary stenting prior to the triple bypass in July of 2016. MEDICATIONS AT HOME: His medications at home include: 1. Spironolactone. 2. Januvia. 3. Potassium. 4. Polyethylene glycol. 5. Percocet. 6. Pantoprazole. 7. A multivitamin. 8. Metformin. 9. Magnesium oxide. 10. Lisinopril. 11. Iron complex. 12. Glipizide. 13. Furosemide. 14. Docusate. 15. Clopidogrel. 16. Carvedilol. 17. Atorvastatin. 18. Aspirin. ALLERGIES: 1. ERYTHROMYCIN. 2. HEPARIN. 3. SOMA. SOCIAL HISTORY: The patient does not smoke. He quit smoking six months ago. He drinks alcohol occasionally. He is travelling from [place] to the [employer]. FAMILY HISTORY: Negative for heart disease. REVIEW OF SYSTEMS: The review of systems is otherwise negative. PHYSICAL EXAMINATION: VITAL SIGNS: Blood pressure 120/66, pulse 57 and regular. HEAD, EYES, EARS, NOSE, THROAT: Negative. NECK: 2+ carotid upstrokes, no bruits. LUNGS: Clear. HEART: Regular with no murmurs, rubs or gallops. ABDOMEN: Abdomen soft. EXTREMITIES: With trace edema. 1 to 2+ distal pulses. NEUROLOGIC: Grossly nonfocal. CARDIOLOGY STUDIES: EKG was reviewed and showed sinus tachycardia and left bundle branch block. Echocardiogram showed moderate left ventricular dysfunction with an ejection fraction of 35% with moderate global hypokinesis. LABS: Hemoglobin 12.0. Potassium 3.4, creatinine 0.9. Troponin 0.04, 0.19, 0.42 and 0.23. BNP 569. DIAGNOSIS: 1. Acute exacerbation of chronic systolic congestive heart failure. 2. Ischemic cardiomyopathy with moderate left ventricular systolic function. 3. Coronary artery disease with history of three-vessel coronary bypass. 4. Mildly abnormal troponin. 5. Hypertension. 6. Diabetes mellitus. DISPOSITION: Mr. Peres will continue his current medical program for congestive heart failure. We will continue aggressive management of his cardiac risk factors. We will obtain an adenosine myocardial perfusion study tomorrow to evaluate for ischemia. I will follow him for cardiology during his hospitalization. He will then follow up with his blow mold technician in [place] after discharge. MD TIKI Tom/SWETA /6:31 PM /8:00 PM AURY
[2017-02-03] MEDS: ATORVASTATIN 80 MG TAB PO SCH (21:04)
[2017-02-04] VITALS (16 sets, daily range): BP systolic 147–155; BP diastolic 65–79; PULSE 51–63; RESP 16–18; TEMP 97.5–98.4; O2SAT 94–97
[2017-02-04] MEDS: RESP: ALBUTEROL 2.5 MG/IPRATROPIUM 0.5 MG NEB (SCH) INH ×3 (03:43→15:46)
[2017-02-04] MEDS: INSULIN ASPART SUPPLEMENTAL SCALE SQ SCH ×2 (06:17→11:00)
[2017-02-04] MEDS ORDERED: FUROSEMIDE 40 MG/4 ML VIAL IV PUSH ONE (08:30)
[2017-02-04] MEDS: CLOPIDOGREL 75 MG TAB PO SCH (08:57)
[2017-02-04] MEDS: DOCUSATE SODIUM 100 MG CAP PO SCH (08:57)
[2017-02-04] MEDS: CARVEDILOL 6.25 MG TAB PO SCH (08:57)
[2017-02-04] MEDS: LISINOPRIL 5 MG TAB PO SCH (08:57)
[2017-02-04] MEDS: PANTOPRAZOLE SOD 40 MG DELAYED RELEASE TAB PO SCH (08:57)
[2017-02-04] MEDS: SPIRONOLACTONE 25 MG TAB PO SCH (08:57)
[2017-02-04] MEDS: ASPIRIN EC 81 MG TABEC PO SCH (08:58)
[2017-02-04] MEDS: POLYETHYLENE GLYCOL 17 GM PKG PO SCH (08:58)
[2017-02-04] MEDS: SODIUM CHLORIDE 0.9% FLUSH 5 ML FLUSH IVF SCH (08:58)
[2017-02-04] MEDS ORDERED: FUROSEMIDE 40 MG TAB PO SCH (09:00)
[2017-02-04] MEDS ORDERED: POTASSIUM CHLORIDE 20 MEQ CONTROLLED RELEASE TAB PO SCH (09:00)
--- NOTE | 2017-02-04 09:22 | HHI.FPPN ---
Subjective Remarks No acute events overnight. Vital signs unremarkable. This morning patient states that he continues to feel well and denies any chest pain or respiratory distress. He is ready to go once cleared by the stress test. (Bibiana Finney MD R2) Objective Vitals Vital Signs Date Time Temp Pulse Resp B/P Pulse Ox O2 Delivery O2 Flow Rate FiO2 02/04/17 07:12 59 02/04/17 06:02 55 02/04/17 05:00 61 02/04/17 04:51 61 02/04/17 03:15 97.5 63 16 149/68 96 02/04/17 03:01 60 02/04/17 02:09 58 02/04/17 01:06 60 02/04/17 00:00 63 02/03/17 23:15 97.6 64 16 125/64 97 02/03/17 23:01 62 02/03/17 22:28 61 02/03/17 21:00 56 02/03/17 20:00 58 02/03/17 20:00 97.6 54 18 143/62 95 02/03/17 19:25 94 21 02/03/17 19:00 58 02/03/17 18:37 64 02/03/17 17:30 57 02/03/17 16:41 57 02/03/17 15:00 97.7 55 18 120/66 97 02/03/17 15:00 58 02/03/17 14:57 55 02/03/17 13:32 57 02/03/17 12:00 52 02/03/17 11:00 57 02/03/17 11:00 98.5 78 18 139/53 96 02/03/17 10:00 61 02/03/17 09:26 96 21 I/O 02/03/17 02/03/17 02/03/17 02/04/17 02/04/17 02/04/17 06:59 14:59 22:59 06:59 14:59 22:59 Intake Total 240 ml 720 ml 700 ml Output Total 1250 ml 1200 ml 725 ml Balance -1010 ml -480 ml -25 ml Intake Oral 240 ml 720 ml 700 ml IV Total 0 ml Output Urine Total 1250 ml 1200 ml 725 ml # Bowel Movements 1 (Bibiana Finney MD R2) Result Diagram: 02/03/17 0602/03/17 06 Objective Remarks GEN: Well-developed, well-nourished patient. No acute distress. Sitting up in bed. CV: Regular rate and rhythm without obvious murmurs. S3 heard this morning. LUNGS: Good air movement bilaterally but with bibasilar crackles. No accessory muscle use. EXT: No edema. NEURO/PSYCH: Awake, alert. Appropriate insight and judgment. Normal speech ( Bibiana Finney MD R2) A/P Assessment and Plan 71-year-old male with a significant history of cardiac disease and CABG. Admitted for CHF exacerbation. Discharge Planning Today after stress test and clearance by cardiology wdw Dr. Aquino (Bibiana Finney MD R2) Attending Attestation Patient seen and examined. Case reviewed and discussed with the resident team. Agree with plan of care as discussed with me and documented in the resident note. (Luci Aquino MD) Problem List: (1) Congestive heart failure Status: Acute Plan: Significant cardiac history with a triple bypass 6 months ago. Exacerbation likely due to increased salt and fluid intake. Found to be hypoxic on admission that required BiPAP but has now been weaned to room air and no respiratory distress. -Echo: EF of 35%. -BNP elevated to around 500 with CXR showing mild CHF (poor image) -Mild Leukocytosis has resolved -Blood cultures negative 1 day -Old EKG showed LBBB * ACS evaluation showed uptrending troponins but did decrease on the morning of 02/03. Likely due to CHF -Monitor I&O -Cardiac telemetry Cardiology consulted: appreciate recommendations * Adenosine myocardial perfusion study * f/u with cardiology in [place] Medications: * Lasix 40mg IV x1 today * Resume home Lasix 40 daily * Aspirin daily * Plavix * Lisinopril * Spironolactone * Lipitor * Coreg * Albuterol + Duonebs (2) CAD (coronary artery disease) Status: Acute Plan: History significant for triple bypass 6 months ago. -Please see plan above (3) HTN (hypertension) Status: Chronic Plan: Continuing home medications -Vasotec as needed (4) DM (diabetes mellitus) Status: Chronic Plan: Held home oral medications -sliding scale (5) Nutrition, metabolism, and development symptoms Status: Acute Plan: Diet: Heart healthy with fluid and salt restrictions (1.5L and 2mg respectively) Electrolytes: Mild hypokalemia, resume potassium replacement 20KCL daily Fluids: none DVT PPX: SCDs due to reported heparin allergy GI PPX: home omeprazole (Bibiana Finney MD R2) Problem Qualifiers (1) Congestive heart failure: Qualified Code: I50.9 - Acute on chronic congestive heart failure, unspecified congestive heart failure type (2) DM (diabetes mellitus): Bibiana Finney MD R2 Feb 04, 2017 09:22 Luci Aquino MD Feb 04, 2017 13:52
[2017-02-04] MEDS ORDERED: REGADENOSON INJ 0.4 MG/5 ML SYR ONE (10:39)
--- NOTE | 2017-02-04 11:53 | RADRPT ---
EXAM DATE/TIME: 02/04/2017 10:08 [place] COMPARISON: No previous studies available for comparison. INDICATIONS : Shortness of breath for 2 days. Cardiomyopathy. Coronary artery disease. Congestive heart failure. DOSE: 30.1 mCi Tc99m Myoview at stress. 10.1 mCi Tc99m Myoview at rest. 0.4 mg Lexiscan STRESS SYMPTOMS: Chest heaviness and dyspnea. EJECTION FRACTION: 34% MEDICAL HISTORY : Diabetes mellitus type 2. Hypertension. Hyperparathyroidism. SURGICAL HISTORY : Coronary artery stent. CABG ENCOUNTER: Initial ACUITY: 2 days PAIN SCALE: 2/10 LOCATION: Bilateral chest TECHNIQUE: The patient underwent pharmacologic stress with infusion of prescribed dose. Continuous ECG tracing was monitored during stress. Gated SPECT imaging was performed after stress and conventional SPECT i maging was performed at rest. The examination was performed on a SPECT/CT scanner, both attenuation and non-corrected datasets were reviewed. FINDINGS: DISTRIBUTION: The maximum perfused segment at stress is in the anterior wall. PERFUSION STUDY: No areas of ischemia are seen. There is decreased matched activity on the stress and rest images at t he upper septum and the inferior and inferolateral pinto. GATED STUDY: There is global hypokinesis with a reduced ejection fraction. There some minimal dyskinesis at the up per septum. CONCLUSION: No areas of ischemia are seen. Fixed defects are seen as is a reduced ejection fraction. RISK CATEGORY: Intermediate (1-3% Annual Mortality Rate) Mono Weeks MD on February 04, 2017 at 11:48 Board Certified Radiologist. This report was verified electronically.
[2017-02-04 13:09] LABS: HEMATOCRIT 35.6 % (39.0-51.0); MEAN CELL VOLUME 95.3 FL (80.0-100.0); MEAN CORPUSCULAR HGB CONC 34.7 % (32.0-36.0); PLATELET COUNT 183 TH/MM3 (150-450); RED BLOOD COUNT 3.74 MIL/MM3 (4.50-5.90); RED CELL DISTRIBUTION WIDTH 13.4 % (11.6-17.2); REVIEW FLAG FINAL; WHITE BLOOD COUNT 8.2 TH/MM3 (4.0-11.0)
[2017-02-04 13:42] LABS: BICARBONATE 27.6 MEQ/L (21.0-32.0); POTASSIUM 3.7 MEQ/L (3.5-5.1)
--- NOTE | 2017-02-04 14:11 | HHI.DS ---
Discharge Summary Admission Date Feb 02, 2017 at 09:19 Discharge Date: Feb 04, 2017 Admitting Diagnosis congestive heart failure, hypoxia (1) Congestive heart failure Plan: Significant cardiac history with a triple bypass 6 months ago. Exacerbation likely due to increased salt and fluid intake. Found to be hypoxic on admission that required BiPAP but has now been weaned to room air and no respiratory distress. -Echo: EF of 35%. -BNP elevated to around 500 with CXR showing mild CHF (poor image) -Mild Leukocytosis has resolved -Blood cultures negative 1 day -Old EKG showed LBBB * ACS evaluation showed uptrending troponins but did decrease on the morning of 02/03. Likely due to CHF -Monitor I&O -Cardiac telemetry Cardiology consulted: appreciate recommendations * Adenosine myocardial perfusion study * f/u with cardiology in [place] Medications: * Lasix 40mg IV x1 today * Resume home Lasix 40 daily * Aspirin daily * Plavix * Lisinopril * Spironolactone * Lipitor * Coreg * Albuterol + Duonebs (2) CAD (coronary artery disease) Plan: History significant for triple bypass 6 months ago. -Please see plan above (3) HTN (hypertension) Plan: Continuing home medications -Vasotec as needed (4) DM (diabetes mellitus) Plan: Held home oral medications -sliding scale (5) Nutrition, metabolism, and development symptoms Plan: Diet: Heart healthy with fluid and salt restrictions (1.5L and 2mg respectively) Electrolytes: Mild hypokalemia, resume potassium replacement 20KCL daily Fluids: none DVT PPX: SCDs due to reported heparin allergy GI PPX: home omeprazole [facility] Brief History Patient is a 71-year-old male with a PMH significant for CHF with a CABG 6 months ago, DM, HTN. Presented today due to acute onset of shortness of breath that happened at 0400 when he was walking to the bathroom. Associated with diaphoresis but no chest pain or nausea. Symptoms persisted over the next 2 hours which caused him to come to the ED. Patient reports that the last episode of similar symptoms was 6 months ago at which time he had a triple bypass. 2 days ago he did note lower extremity swelling and had some abdominal discomfort this morning. He had been eating and drinking more than usual as he is here for bike week. Patient otherwise denies any other symptoms except for dysuria that is new today. He does report that he ends up in hospital when he is on out of town trips. Symptoms have improved while being in the ED. CBC/BMP: 02/04/17 1253 02/04/17 1253 Significant Findings Laboratory Tests Test 02/02/17 02/02/17 02/02/17 02/02/17 06:45 10:25 10:44 11:12 White Blood Count 12.3 TH/MM3 (4.0-11.0) Urine Protein 300 mg/dL (NEG-TRACE) Urine Occult Blood TRACE (NEG) Urine RBC 8 /hpf (0-3) Urine Mucus FEW /lpf (OCC) Estimat Glomerular Filtration 75 ML/MIN (>89) Rate Random Glucose 176 MG/DL (74-106) Magnesium Level 1.4 MG/DL (1.5-2.5) Creatine Kinase MB 4.3 NG/ML (0.5-3.6) B-Type Natriuretic Peptide 569 PG/ML (0-100) Total Protein 8.8 GM/DL (6.4-8.2) Troponin I 0.19 NG/ML (0.02-0.05) Venous Blood Partial Pressure 56 mmHg (44-48) CO2 Venous Blood Partial Pressure 22 mmHg (35-40) O2 Venous Blood HCO3 31 mmol/L (22-26) Venous Blood Oxygen Saturation 29 % (70-76) Venous Blood Oxygen Content 5.3 Vol % (9.0-17.0) Venous Blood Base Excess 5.8 mmol/L (-2-2) Blood Gas HCO3 27 mmol/L (22-26) Blood Gas Base Excess 2.9 mmol/L (-2-2) Arterial Blood pH 7.45 (7.380-7.420) Test 02/02/17 02/03/17 02/04/17 19:24 06:00 12:53 Troponin I 0.42 NG/ML 0.23 NG/ML (0.02-0.05) (0.02-0.05) Red Blood Count 3.56 MIL/MM3 3.74 MIL/MM3 (4.50-5.90) (4.50-5.90) Hemoglobin 12.0 GM/DL 12.4 GM/DL (13.0-17.0) (13.0-17.0) Hematocrit 34.0 % 35.6 % (39.0-51.0) (39.0-51.0) Neutrophils (%) (Auto) 72.2 % (16.0-70.0) Potassium Level 3.4 MEQ/L (3.5-5.1) Estimat Glomerular Filtration 83 ML/MIN (>89) 64 ML/MIN (>89) Rate Random Glucose 180 MG/DL 297 MG/DL (74-106) (74-106) Calcium Level 8.0 MG/DL 8.3 MG/DL (8.5-10.1) (8.5-10.1) Imaging Last Impressions Myocardial Perfusion Scan Nuc Med 02/04/17 0900 Signed Impressions: Service Date/Time: Saturday, February 04, 2017 10:08 - CONCLUSION: No areas of ischemia are seen. Fixed defects are seen as is a reduced ejection fraction. RISK CATEGORY: Intermediate (1-3%% Annual Mortality Rate) Mono Weeks MD Chest X-Ray 02/02/17 0637 Signed Impressions: Service Date/Time: Thursday, February 02, 2017 06:41 - CONCLUSION: Slight CHF. K. Vinny Swanson MD PE at Discharge GEN: Well-developed, well-nourished patient. No acute distress. Sitting up in bed. CV: Regular rate and rhythm without obvious murmurs. S3 heard this morning. LUNGS: Good air movement bilaterally but with bibasilar crackles. No accessory muscle use. EXT: No edema. NEURO/PSYCH: Awake, alert. Appropriate insight and judgment. Normal speech Hospital Course Patient is a 71-year-old male with a significant cardiac history and CHF who was admitted for CHF exacerbation. BNP was elevated on admission around 500. Did require BiPAP due to respiratory distress. Responded well to Lasix 80 mg IV 1 which was then titrated down to Lasix 40 mg twice a day then daily. Was able to be quickly weaned down to room air without further need for oxygen supplementation. Troponin were trended which did increase, likely due to cardiomyopathy. Stress test was performed which did not show any areas of fixed ischemia. Due to significant clinical improvement, patient was discharged in stable condition. Pt Condition on Discharge: Stable Discharge Disposition: Discharge Home Discharge Instructions DIET: Follow Instructions for: Heart Healthy Diet, Low Sodium Diet Activities you can perform: Regular-No Restrictions Follow up Referrals: Appointment for Follow Up - 1 Week with PCP Cardiology - 1 Week Continued Medications: Aspirin (Aspirin) 81 Mg Tabdr 81 MG PO DAILY TAB Atorvastatin (Atorvastatin) 80 Mg Tab 80 MG PO HS Cholesterol Management #30 Ref 0 TAB Carvedilol (Carvedilol) 6.25 Mg Tab 6.25 MG PO BID #60 Ref 0 TAB Clopidogrel (Clopidogrel) 75 Mg Tab 75 MG PO DAILY Blood Clot Prevention #30 Ref 0 TAB Docusate Sodium (Docusate Sodium) 100 Mg Cap 100 MG PO BID Prevent Constipation #60 Ref 0 CAP Furosemide (Furosemide) 40 Mg Tab 40 MG PO DAILY #30 Ref 0 TAB Glipizide (Glipizide) 5 Mg Tab 5 MG PO BIDAC Take 30 minutes before a meal Blood Sugar Management #60 Ref 0 TAB Iron Combinations (Iron Complex) 1 Cap Cap 150 MG PO DAILY Nutritional Supplement Ref 0 CAP Lisinopril (Lisinopril) 5 Mg Tab 5 MG PO DAILY Blood Pressure Management #30 Ref 0 TAB Magnesium Oxide (Magnesium Oxide) 400 Mg Tab 400 MG PO DIRECTED Nutritional Supplement Ref 0 TAB Metformin (Metformin) 1,000 Mg Tab 1000 MG PO BIDPC With meals Blood Sugar Management #60 Ref 0 TAB Multiple Vitamins W/ Minerals (Multiple Vitamin/Minerals) 1 Tab Tab 1 TAB PO DAILY Oxycodone-Acetaminophen (Percocet) 5-325 mg Tab 1 TAB PO Q6H PRN PAIN Ref 0 TAB Pantoprazole (Pantoprazole) 40 Mg Tab 40 MG PO DAILY Reflux #30 Ref 0 TAB Polyethylene Glycol 3350 (Bulk (Polyethylene Glycol 3350) 1 Pow Pow 17 GM PO TID Potassium Chloride ER (Potassium Chloride CR) 10 Meq Tab 20 MEQ PO DAILY TAB Sitagliptin (Januvia) 100 Mg Tab 100 MG PO DAILY Blood Sugar Management #30 Ref 0 TAB Spironolactone (Spironolactone) 25 Mg Tab 12.5 MG PO DAILY #15 Ref 0 TAB Bibiana Finney MD R2 Feb 04, 2017 14:11
--- NOTE | 2017-02-04 16:29 | PD.CARD.PN ---
Subjective Subjective Remarks No CP or SOB, feels better Objective Medications Current Medications Medications (Trade) Dose Ordered Sig/Dilip Route Start Time Stop Time Status Last Admin (NS Flush) 2 ml BID IVF 02/02/17 21:00 02/04/17 08:58 (NS Flush) 2 ml UNSCH PRN IVF 02/02/17 09:30 (Ecotrin Ec) 81 mg DAILY PO 02/03/17 09:00 02/04/17 08:58 (Lipitor) 80 mg HS PO 02/02/17 21:00 02/03/17 21:04 (Colace) 100 mg BID PO 02/02/17 21:00 02/04/17 08:57 (Protonix) 40 mg DAILY PO 02/03/17 09:00 02/04/17 08:57 (Miralax) 17 gm DAILY PO 02/02/17 13:00 02/04/17 08:58 (Tylenol) 650 mg Q4H PRN PO 02/02/17 09:45 (Zofran Inj) 4 mg Q6H PRN IV 02/02/17 09:45 (D50w (Vial) Inj) 25 ml UNSCH PRN IV PUSH 02/02/17 10:00 (Glucagon Inj) 1 mg UNSCH PRN OTHER 02/02/17 10:00 (Pill Splitter) 1 ea UNSCH PRN OTHER 02/02/17 10:30 (Coreg) 6.25 mg BID PO 02/02/17 11:00 02/04/17 08:57 (Plavix) 75 mg DAILY PO 02/02/17 11:00 02/04/17 08:57 (Prinivil) 5 mg DAILY PO 02/02/17 11:00 02/04/17 08:57 (Aldactone) 12.5 mg DAILY PO 02/02/17 11:00 02/04/17 08:57 (Vasotec Inj) 1.25 mg Q6H PRN IV 02/02/17 11:00 (KCl) 20 meq DAILY PO 02/04/17 09:00 02/04/17 08:58 Vital Signs / I&O Vital Signs Date Time Temp Pulse Resp B/P Pulse Ox O2 Delivery O2 Flow Rate FiO2 02/04/17 14:00 60 02/04/17 13:00 61 02/04/17 12:40 53 02/04/17 11:00 51 02/04/17 11:00 97.6 62 18 147/65 97 02/04/17 09:00 56 02/04/17 08:00 58 02/04/17 07:12 59 02/04/17 07:00 98.4 60 18 155/79 94 02/04/17 06:02 55 02/04/17 05:00 61 02/04/17 04:51 61 02/04/17 03:15 97.5 63 16 149/68 96 02/04/17 03:01 60 02/04/17 02:09 58 02/04/17 01:06 60 02/04/17 00:00 63 02/03/17 23:15 97.6 64 16 125/64 97 02/03/17 23:01 62 02/03/17 22:28 61 02/03/17 21:00 56 02/03/17 20:00 58 02/03/17 20:00 97.6 54 18 143/62 95 02/03/17 19:25 94 21 02/03/17 19:00 58 02/03/17 18:37 64 02/03/17 17:30 57 02/03/17 16:41 57 I/O 02/03/17 02/03/17 02/03/17 02/04/17 02/04/17 02/04/17 07:00 15:00 23:00 07:00 15:00 23:00 Intake Total 240 ml 720 ml 700 ml Output Total 1250 ml 1200 ml 725 ml Balance -1010 ml -480 ml -25 ml Intake Oral 240 ml 720 ml 700 ml IV Total 0 ml Output Urine Total 1250 ml 1200 ml 725 ml # Bowel Movements 1 Physical Exam GENERAL: In NAD SKIN: Warm and dry. HEAD: Normocephalic. EYES: No scleral icterus. No injection or drainage. NECK: Supple, trachea midline. No JVD or lymphadenopathy. CARDIOVASCULAR: Regular rate and rhythm without murmurs, gallops, or rubs. RESPIRATORY: Breath sounds equal bilaterally. No accessory muscle use. GASTROINTESTINAL: Abdomen soft, non-tender, nondistended. MUSCULOSKELETAL: No cyanosis, trace edema. Laboratory Laboratory Tests Test 02/04/17 12:53 White Blood Count 8.2 TH/MM3 Red Blood Count 3.74 MIL/MM3 Hemoglobin 12.4 GM/DL Hematocrit 35.6 % Mean Corpuscular Volume 95.3 FL Mean Corpuscular Hemoglobin 33.0 PG Mean Corpuscular Hemoglobin 34.7 % Concent Red Cell Distribution Width 13.4 % Platelet Count 183 TH/MM3 Mean Platelet Volume 8.9 FL Sodium Level 137 MEQ/L Potassium Level 3.7 MEQ/L Chloride Level 100 MEQ/L Carbon Dioxide Level 27.6 MEQ/L Anion Gap 9 MEQ/L Blood Urea Nitrogen 14 MG/DL Creatinine 1.13 MG/DL Estimat Glomerular Filtration 64 ML/MIN Rate Random Glucose 297 MG/DL Calcium Level 8.3 MG/DL Imaging Last Impressions Myocardial Perfusion Scan Nuc Med 02/04/17 0900 Signed Impressions: Service Date/Time: Saturday, February 04, 2017 10:08 - CONCLUSION: No areas of ischemia are seen. Fixed defects are seen as is a reduced ejection fraction. RISK CATEGORY: Intermediate (1-3%% Annual Mortality Rate) Mono Weeks MD Chest X-Ray 02/02/17 0637 Signed Impressions: Service Date/Time: Thursday, February 02, 2017 06:41 - CONCLUSION: Slight CHF. Kyrs Swanson MD Assessment and Plan Problem List: (1) Congestive heart failure (2) CAD (coronary artery disease) (3) HTN (hypertension) (4) DM (diabetes mellitus) Assessment and Plan Adenosine stress test with no evidence of ischemia. Continue tx for CHF. Pt counseled on low salt diet. OK to discharge home. F/u with his closing agent in [facility]. Problem Qualifiers (1) Congestive heart failure: Qualified Code: I50.23 - Acute on chronic systolic congestive heart failure (2) CAD (coronary artery disease): (3) DM (diabetes mellitus): Amisha Wise MD Feb 04, 2017 16:29
== END 2017-02-04 17:45 | disposition home or self-care (01) | DRG 293 ==
LOC: NEPE 06:33 → NEDA 09:19 → HCIS 12:00
PROVIDERS: ADMIT Family Medicine; ATTEND Family Medicine
PROC: 5A09357 Assistance with Respiratory Ventilation, Less than 24 Consecutive Hours, Continuous Positive Airway Pressure (ICD-10-PCS; principal; 2017-02-02)
DX: I50.23 Acute on chronic systolic (congestive) heart failure (principal); I25.5 Ischemic cardiomyopathy; E11.9 Type 2 diabetes mellitus without complications; I25.10 Atherosclerotic heart disease of native coronary artery without angina pectoris; Z95.1 Presence of aortocoronary bypass graft; Z95.5 Presence of coronary angioplasty implant and graft; Z79.84 Long term (current) use of oral hypoglycemic drugs; Z79.82 Long term (current) use of aspirin; Z91.11 Patient's noncompliance with dietary regimen; R09.02 Hypoxemia; E87.6 Hypokalemia; I10 Essential (primary) hypertension; E78.5 Hyperlipidemia, unspecified; K21.9 Gastro-esophageal reflux disease without esophagitis; M54.9 Dorsalgia, unspecified; G89.29 Other chronic pain; R30.0 Dysuria; E78.00 Pure hypercholesterolemia, unspecified; Z87.891 Personal history of nicotine dependence
CPT/HCPCS: 36600; 51702; 71010; 78452; 80048; 80053; 81001; 82550; 82552; 82805; 82948; 83735; 83880; 84484; 85025; 85027; 85610; 85730; 87040; 93005; 93017; 93306; 94003; 94640; 94664; 96374; 96375; A9502; J1815; J1940; J2785; J3475

== ENCOUNTER 2018-02-07 01:01 | Inpatient (IN) | payer MEDICARE ==
[~2018-02-07] VITALS: Ht 175.3 cm; Wt 102.0 kg
[2018-02-07] VITALS (26 sets, daily range): BP systolic 140–251; BP diastolic 61–119; PULSE 56–75; RESP 15–36; TEMP 97.9–98.9; O2SAT 84–100
[~2018-02-07 01:01] MED LIST: ASPI1TAB69 PO; ATOR80TA45 PO; CARV6.252 PO; CLOP75TA PO; DOCU100C15 PO; FURO40TA PO; GLIP5TAB8 PO; IRONCAP2 PO; LISI-519 PO; MAGN400T2 PO; METF1000 PO; MULT1TAB39 PO; PANT40TA3 PO; PERC5TAB12 PO; POLYPOW5 PO; POTA10TA8 PO; SITA1TAB2 PO; SPIR25TA PO
[2018-02-07] MEDS ORDERED: FUROSEMIDE 100 MG/10 ML VIAL IVP ONE (01:15)
[2018-02-07] MEDS ORDERED: SODIUM CHLORIDE 0.9% FLUSH 10 ML FLUSH IVF PRN (01:15)
[2018-02-07] MEDS ORDERED: RESP: ALBUTEROL 2.5 MG/IPRATROPIUM 0.5 MG NEB (SCH) INH (01:15)
[2018-02-07] MEDS ORDERED: methylPREDNISolone SOD SUCC 125 MG/2 ML VIAL IV PUSH ONE (01:15)
--- NOTE | 2018-02-07 01:17 | PD ---
HPI Chief Complaint: Respiratory Distress Time Seen by Provider: 01:08 Travel History International Travel<30 days: No Contact w/Intl Traveler<30days: No Traveled to known affect area: No History of Present Illness HPI The patient is a 72 year old male who presents to the [facility] emergency department with a history of shortness of breath that began just after 10 PM tonight. The patient is visiting from [place]. The patient has a history of coronary artery disease status post coronary artery bypass grafting in 2016 and a prior history of congestive heart failure. He reports that he forgot to take his medications today. He denies having any chest pain, however he arrives with severe shortness of breath. The patient arrived by private vehicle. The patient's O2 saturation on room air was 84% with tachypnea and work of breathing noted with conversational dyspnea. The patient was diaphoretic on arrival. The patient's verbal history was limited due to his dyspnea. The patient does report having a dry cough. The patient reports that he does smoke 1 pack of cigarettes daily. He denies using any inhalers. He reports that he is on diuretics. He reports that he has had some increased lower extremity edema. On review of systems, he denies having any recent known fevers, neck pain, abdominal pain, vomiting,urinary symptoms, or neurologic symptoms. [facility] Past Medical History Narrative Medical The patient's past medical history is significant for coronary artery disease, congestive heart failure, hypertension, hyperlipidemia, diabetes mellitus, acid reflux, chronic back pain. Arthritis: Yes Heart Rhythm Problems: No Cancer: No Cardiac Catheterization: Yes (CABG) Cardiovascular Problems: Yes High Cholesterol: Yes Chest Pain: Yes Congestive Heart Failure: Yes Coronary Artery Disease: Yes Diabetes: Yes Endocrine: Yes GERD: Yes Genitourinary: No Immune Disorder: No Neurologic: No Psychiatric: No Reproductive: No Respiratory: No Past Surgical History Narrative Surgical The patient's past surgical history is significant for coronary artery bypass grafting of 3 vessels, cardiac catheterization with stent placement Abdominal Surgery: No Cardiac Surgery: Yes (CABG) Coronary Artery Bypass Graft: Yes Ear Surgery: No Endocrine Surgery: No Eye Surgery: No Genitourinary Surgery: No Gynecologic Surgery: No Oral Surgery: No Thoracic Surgery: Yes Social History Alcohol Use: No Tobacco Use: Yes (1 pack per day) Substance Use: No Allergies-Medications (Allergen,Severity, Reaction): Coded Allergies: carisoprodol (Verified Allergy, Unknown, 02/07/18) enoxaparin (Verified Allergy, Unknown, 02/07/18) erythromycin base (Verified Allergy, Unknown, 02/07/18) heparin (porcine) (Verified Allergy, Unknown, 02/07/18) Reported Meds & Prescriptions Reported Meds & Active Scripts Active Reported Spironolactone 25 Mg Tab 12.5 Mg PO DAILY Januvia (Sitagliptin Phosphate) 100 Mg Tab 100 Mg PO DAILY Potassium Chloride CR (Potassium Chloride) 10 Meq Tab 20 Meq PO DAILY Polyethylene Glycol 3350 (Polyethylene Glycol 3350 (Bulk) 1 Pow Pow 17 Gm PO TID Percocet (Oxycodone-Acetaminophen) 5-325 mg Tab 1 Tab PO Q6H PRN Pantoprazole (Pantoprazole Sodium) 40 Mg Tab 40 Mg PO DAILY Multiple Vitamin/Minerals (Multiple Vitamins W/ Minerals) 1 Tab Tab 1 Tab PO DAILY Metformin (Metformin HCl) 1,000 Mg Tab 1,000 Mg PO BIDPC With meals Magnesium Oxide 400 Mg Tab 400 Mg PO DIRECTED Lisinopril 5 Mg Tab 5 Mg PO DAILY Iron Complex (Iron Combinations) 1 Cap Cap 150 Mg PO DAILY Glipizide 5 Mg Tab 5 Mg PO BIDAC Take 30 minutes before a meal Furosemide 40 Mg Tab 40 Mg PO DAILY Docusate Sodium 100 Mg Cap 100 Mg PO BID Clopidogrel (Clopidogrel Bisulfate) 75 Mg Tab 75 Mg PO DAILY Carvedilol 6.25 Mg Tab 6.25 Mg PO BID Atorvastatin (Atorvastatin Calcium) 80 Mg Tab 80 Mg PO HS Aspirin 81 Mg Tabdr 81 Mg PO DAILY Review of Systems Except as stated in HPI: all other systems reviewed are Neg General / Constitutional: No: Fever Eyes: No: Visual changes HENT: No: Headaches Cardiovascular: Positive: Diaphoresis, Dyspnea on exertion, No: Chest Pain or Discomfort Respiratory: Positive: Cough, Shortness of Breath, Wheezing Gastrointestinal: No: Abdominal Pain Genitourinary: No: Dysuria Musculoskeletal: No: Pain Skin: No Rash Neurologic: No: Weakness Psychiatric: No: Depression Endocrine: No: Polydipsia Hematologic/Lymphatic: No: Easy Bruising Physical Exam Narrative General: The patient is a well-developed well-nourished male who arrives short of breath with tripoding, conversational dyspnea, accessory muscle use noted. Head and Neck exam: Head is normocephalic atraumatic. Eyes: EOMI, pupils are equal round and reactive to light. Nose: Midline septum with pink mucous membranes Mouth: Dentition unremarkable. Moist mucus membranes. Posterior oropharynx is not erythematous. No tonsillar hypertrophy. Uvula midline. Airway patent. Neck: No palpable lymphadenopathy. No nuchal rigidity. No thyromegaly. Cardiovascular: Regular rate and rhythm without murmurs, gallops, or rubs. No pulse deficit to the extremities on simultaneous auscultation and palpation of his radial artery. Lungs: Crackles audible bilateral lung bases and fci up bilateral lung mendez, soft expiratory wheezes audible anteriorly. No rhonchi audible. The patient has accessory muscle use noted. The patient has paroxysmal abdominal breathing with tripoding and conversational dyspnea. Abdomen: Soft, without tenderness to palpation in all 4 quadrants of the abdomen. No guarding, rebound, or rigidity. Normal bowel sounds are audible. No tenderness on palpation of McBurney's point. Extremities: No clubbing or cyanosis. The patient has 1+ pitting edema bilateral lower extremities. 2+ pulses in all 4 extremities. No calf tenderness on palpation. Back: No costovertebral angle tenderness to palpation. Neurologic Exam: Grossly nonfocal Skin Exam: No rash noted. Intact skin that is warm and dry. Data Data Last Documented VS Vital Signs Date Time Temp Pulse Resp B/P (MAP) Pulse Ox O2 Delivery O2 Flow Rate FiO2 02/07/18 01:50 93 45 02/07/18 01:28 94 227/107 02/07/18 01:10 Nasal Cannula 4.00 02/07/18 01:03 98.9 36 Orders Orders Complete Blood Count With Diff (02/07/18 01:08) Comprehensive Metabolic Panel (02/07/18 01:08) B-Type Natriuretic Peptide (02/07/18 01:08) D-Dimer (02/07/18 01:08) Act Partial Throm Time (Ptt) (02/07/18 01:08) Prothrombin Time / Inr (Pt) (02/07/18 01:08) Magnesium (Mg) (02/07/18 01:08) Ckmb (Isoenzyme) Profile (02/07/18 01:08) Troponin I (02/07/18 01:08) Arterial Blood Gas (Abg) (02/07/18 01:08) Urinalysis - C+S If Indicated (02/07/18 01:08) Iv Access Insert/Monitor (02/07/18 01:08) Electrocardiogram (02/07/18 01:08) Ecg Monitoring (02/07/18 01:08) Oximetry (02/07/18 01:08) Oxygen Administration (02/07/18 01:08) Chest, Single Ap (02/07/18 01:08) Sodium Chloride 0.9% Flush (Ns Flush) (02/07/18 01:15) Albuterol-Ipratropium Neb (Duoneb Neb) (02/07/18 01:15) Furosemide Inj (Lasix Inj) (02/07/18 01:15) Resp Bipap / Cpap Non Invas Vt (02/07/18 01:08) Methylprednisolone So Succ Inj (Solumedr (02/07/18 01:15) Nitroglycerin Sl (Nitrostat Sl) (02/07/18 01:30) Nitroglycerin-D5w 50 Mg/250 Ml (Nitrogly (02/07/18 01:30) Aspirin Chew (Aspirin Chew) (02/07/18 01:30) CKMB (02/07/18 01:20) CKMB% (02/07/18 01:20) Admit Order (Ed Use Only) (02/07/18 02:56) Labs Laboratory Tests Test 02/07/18 01:20 02/07/18 01:38 White Blood Count 14.0 TH/MM3 Red Blood Count 4.10 MIL/MM3 Hemoglobin 13.9 GM/DL Hematocrit 40.6 % Mean Corpuscular Volume 99.0 FL Mean Corpuscular Hemoglobin 34.0 PG Mean Corpuscular Hemoglobin Concent 34.3 % Red Cell Distribution Width 13.5 % Platelet Count 257 TH/MM3 Mean Platelet Volume 9.4 FL Neutrophils (%) (Auto) 61.3 % Lymphocytes (%) (Auto) 27.3 % Monocytes (%) (Auto) 7.1 % Eosinophils (%) (Auto) 3.6 % Basophils (%) (Auto) 0.7 % Neutrophils # (Auto) 8.6 TH/MM3 Lymphocytes # (Auto) 3.8 TH/MM3 Monocytes # (Auto) 1.0 TH/MM3 Eosinophils # (Auto) 0.5 TH/MM3 Basophils # (Auto) 0.1 TH/MM3 CBC Comment DIFF FINAL Differential Comment Prothrombin Time 11.1 SEC Prothromb Time International Ratio 1.1 RATIO Activated Partial Thromboplast Time 24.8 SEC D-Dimer Quantitative (PE/DVT) 0.84 MG/L FEU Blood Urea Nitrogen 18 MG/DL Creatinine 1.05 MG/DL Random Glucose 216 MG/DL Total Protein 8.0 GM/DL Albumin 4.0 GM/DL Calcium Level 9.3 MG/DL Magnesium Level 1.6 MG/DL Alkaline Phosphatase 92 U/L Aspartate Amino Transf (AST/SGOT) 24 U/L Alanine Aminotransferase (ALT/SGPT) 34 U/L Total Bilirubin 0.4 MG/DL Sodium Level 141 MEQ/L Potassium Level 4.5 MEQ/L Chloride Level 104 MEQ/L Carbon Dioxide Level 28.0 MEQ/L Anion Gap 9 MEQ/L Estimat Glomerular Filtration Rate 69 ML/MIN Total Creatine Kinase 176 U/L Creatine Kinase MB 2.9 NG/ML Troponin I 0.04 NG/ML B-Type Natriuretic Peptide 860 PG/ML Blood Gas Puncture Site RT RADIAL Blood Gas Patient Temperature 98.6 Blood Gas HCO3 26 mmol/L Blood Gas Base Excess -1.0 mmol/L Blood Gas Oxygen Saturation 91 % Arterial Blood pH 7.19 Arterial Blood Partial Pressure CO2 72 mmHg Arterial Blood Partial Pressure O2 87 mmHG Arterial Blood Oxygen Content 16.4 Vol % Arterial Blood Carboxyhemoglobin 1.9 % Arterial Blood Methemoglobin 0.5 % Blood Gas Hemoglobin 12.8 G/DL Oxygen Delivery Device BiPAP Blood Gas Ventilator Setting IPAP12/EPAP5 Blood Gas Inspired Oxygen 45 % [facility] Medical Decision Making Medical Screen Exam Complete: Yes Emergency Medical Condition: Yes Medical Record Reviewed: Yes Interpretation(s) Last Impressions Chest X-Ray 02/07/18 0108 Signed Impressions: Service Date/Time: Wednesday, February 07, 2018 01:23 - CONCLUSION: Cardiomegaly. No focal airspace infiltrates. Leo Valadez MD Differential Diagnosis CHF exacerbation, versus COPD, versus flash pulmonary edema from hypertensive emergency, versus pulmonary embolism Narrative Course During the course of the patient's emergency department visit, the patient's history, examination, and differential diagnosis were reviewed with the patient. The patient was placed on a sweater operator with oximetry and frequent blood pressure monitoring. The patient had IV access obtained and blood work sent for analysis. The patient had a EKG done on arrival. The patient's EKG showed a sinus rhythm with occasional supraventricular premature complexes, QRS duration is 159 ms, QTC is 402 ms. The patient on transfer from the wheelchair to the [facility] is incontinent of urine and stool. From reviewing the electronic medical record the patient had an EKG done at this facility in January 2017 that did reveal a left bundle branch block at that time. The patient's O2 saturation initially on room air was 84%. The patient was placed on nasal cannula O2 at 4 L, however the patient continued to have hypoxemia and was mouth breathing. The patient was placed on a nonrebreather briefly while BiPAP was prepared by respiratory therapy. The patient was placed on BiPAP 12/5 at 40 % which will be weaned as tolerated to maintain his O2 saturations at greater than or equal to 92%. The patient was initially provided aspirin 324 mg p.o. 1, sublingual nitroglycerin p.o. well nitroglycerin drip was prepared to be started as the patient was noted to be hypertensive with a blood pressure of 227/107. The patient's laboratory studies were reviewed and remarkable for a white count of 14, hemoglobin 13.9, platelets 257 with a normal differential, chemistry is remarkable for glucose of 216, cardiac enzymes within normal limits, BNP elevated at 860. PT PTT within normal limits, d-dimer is elevated at 0.84. CTA to rule out PE has been ordered. Radiology studies were reviewed and remarkable for a chest x-ray reveals cardiomegaly and what appears to be pulmonary edema. The patient was given Lasix 60 mg IV. The patient's results were discussed with the patient, including the plan of care. I explained that further testing and/ or monitoring is indicated based on the patient's history, examination, and/ or laboratory findings. Therefore, I recommended admission for additional evaluation. The patient expressed understanding and was agreeable with this plan. The patient was admitted to the hospital in critical condition and sent to a bed under the care of the business unit leader service. Critical Care Narrative Aggregate critical care time was 39 minutes. Time to perform other separately billable procedures was not included in the critical care time. My time did not include minutes spent treating any other patients simultaneously or on activities that did not directly contribute to the patient's treatment. The services I provided to this patient were to treat and/or prevent clinically significant deterioration that could result in: Cardiac arrhythmia causing cardiopulmonary arrest, versus respiratory failure. I provided critical care services requiring my management, as noted below: Chart data review, documentation time, medication orders and management, vital sign assessments/reviewing monitor data, ordering and reviewing lab tests, ordering and interpreting/reviewing x-rays and diagnostic studies, care of the patient and discussion of the patient with the admitting physicians. Physician Communication Physician Communication The patient's case including history, pertinent physical examination findings, and laboratory studies were discussed with Dr. Garcia. It was agreed that the patient would be admitted to the business unit leader service. Diagnosis Primary Impression: Congestive heart failure Qualified Codes: I50.9 - Heart failure, unspecified Additional Impression: Hypertensive emergency Admitting Information Admitting Physician Requests: Allie Domingo MD Feb 07, 2018 01:17
[2018-02-07] MEDS ORDERED: ASPIRIN 81 MG CHEW TAB CHEW ONE (01:30)
[2018-02-07] MEDS ORDERED: NITROGLYCERIN-D5W 50 MG/250 ML 250 ML IV ONE (01:30)
[2018-02-07] MEDS ORDERED: NITROGLYCERIN 0.4 MG SL 25 TABS/BTL SL ONE (01:30)
[2018-02-07 01:32] LABS: AUTOMATED NEUTROPHIL # 8.6 TH/MM3 (1.8-7.7); BASOPHIL # 0.1 TH/MM3 (0-0.2); BASOPHIL % 0.7 % (0.0-2.0); EOSINOPHIL # 0.5 TH/MM3 (0-0.4); EOSINOPHIL % 3.6 % (0.0-4.0); HEMATOCRIT 40.6 % (39.0-51.0); HEMOGLOBIN 13.9 GM/DL (13.0-17.0); LYMPH % 27.3 % (9.0-44.0); LYMPHOCYTE # 3.8 TH/MM3 (1.0-4.8); MEAN CORPUSCULAR HGB CONC 34.3 % (32.0-36.0); MEAN PLATELET VOLUME 9.4 FL (7.0-11.0); MONO % 7.1 % (0.0-8.0); NEUT % 61.3 % (16.0-70.0); PLATELET COUNT 257 TH/MM3 (150-450); RED CELL DISTRIBUTION WIDTH 13.5 % (11.6-17.2)
--- NOTE | 2018-02-07 01:43 | RADRPT ---
EXAM DATE/TIME: 02/07/2018 01:23 [facility] COMPARISON: CHEST SINGLE AP, February 02, 2017, 6:41. INDICATIONS : Short of breath. MEDICAL HISTORY : Hypertension. Diabetes mellitus type II. Congestive heart failure. SURGICAL HISTORY : CABG. Cardiac Cath. ENCOUNTER: Initial ACUITY: 1 day PAIN SCORE: 0/10 LOCATION: Bilateral chest FINDINGS: There is mild motion blurring of the image. The heart is enlarged, similar to prior. The bronchopul monary markings are prominent, but no cephalization of pulmonary flow. No focal infiltrates or air s pace opacity. Median sternotomy with wire sutures in place. CONCLUSION: Cardiomegaly. No focal airspace infiltrates. Leo Valadez MD on February 07, 2018 at 1:41 Board Certified Radiologist. This report was verified electronically.
[2018-02-07 01:49] LABS: INTERNATIONAL NORMALIZED RATIO 1.1 RATIO; PROTHROMBIN TIME - PATIENT 11.1 SEC (9.8-11.6)
[2018-02-07 01:54] LABS: ALT (GPT) 34 U/L (12-78); AST (GOT) 24 U/L (15-37); BLOOD UREA NITROGEN 18 MG/DL (7-18); CALCIUM 9.3 MG/DL (8.5-10.1); CHLORIDE 104 MEQ/L (98-107); CREATININE 1.05 MG/DL (0.60-1.30); GLOMERULAR FILTRATION RATE 69 ML/MIN (>89); GLUCOSE,RANDOM 216 MG/DL (74-106); MAGNESIUM 1.6 MG/DL (1.5-2.5); SODIUM (NA) 141 MEQ/L (136-145)
[2018-02-07 01:58] LABS: ALKALINE PHOSPHATASE 92 U/L (45-117); TOTAL BILIRUBIN ADULT 0.4 MG/DL (0.2-1.0); TROPONIN I 0.04 NG/ML (0.02-0.05)
[2018-02-07 02:14] LABS: D-DIMER 0.84 MG/L FEU (0.00-0.50)
[2018-02-07] MEDS ORDERED: oxyCODONE/ACETAMINOPHEN 5 MG/325 MG TAB PO PRN (03:30)
--- NOTE | 2018-02-07 03:42 | HHI.HP ---
HPI Service Critical Care Medicine Primary Care Physician No Primary Care Physician Admission Diagnosis CHF exacerbation, hypertensive emergency Diagnosis: Travel History International Travel<30 Days: No Contact w/Intl Traveler <30 Da: No Traveled to Known Affected Are: No History of Present Illness 72 year old male presents with a history of shortness of breath that began just after 10 PM tonight. The patient is visiting from [place]. The patient has a history of coronary artery disease status post coronary artery bypass grafting in 2016 and a prior history of congestive heart failure. He reports that he forgot to take his medications today. He denies having any chest pain, however he arrives with severe shortness of breath. The patient's O2 saturation on room air was 84% with tachypnea and work of breathing noted with conversational dyspnea. The patient was diaphoretic on arrival. The patient does report having a dry cough. The patient reports that he does smoke 1 pack of cigarettes daily. He denies using any inhalers. He reports that he is on diuretics. He reports that he has had some increased lower extremity edema. In the emergency department he was placed on facemask BiPAP, received some diuretics with significant improvement of symptoms. Review of Systems ROS Unable to obtain patient on facemask BiPAP in respiratory distress Past Family Social History Allergies: Coded Allergies: carisoprodol (Verified Allergy, Unknown, 02/07/18) enoxaparin (Verified Allergy, Unknown, 02/07/18) erythromycin base (Verified Allergy, Unknown, 02/07/18) heparin (porcine) (Verified Allergy, Unknown, 02/07/18) Past Medical History CAD with Triple CABG HTN HLD DM CHF GERD Chronic Back pain Past Surgical History Triple CABG in July, 1 cardiac stent Reported Medications Reported Meds & Active Scripts Active Reported Spironolactone 25 Mg Tab 12.5 Mg PO DAILY Januvia (Sitagliptin Phosphate) 100 Mg Tab 100 Mg PO DAILY Potassium Chloride CR (Potassium Chloride) 10 Meq Tab 20 Meq PO DAILY Polyethylene Glycol 3350 (Polyethylene Glycol 3350 (Bulk) 1 Pow Pow 17 Gm PO TID Percocet (Oxycodone-Acetaminophen) 5-325 mg Tab 1 Tab PO Q6H PRN Pantoprazole (Pantoprazole Sodium) 40 Mg Tab 40 Mg PO DAILY Multiple Vitamin/Minerals (Multiple Vitamins W/ Minerals) 1 Tab Tab 1 Tab PO DAILY Metformin (Metformin HCl) 1,000 Mg Tab 1,000 Mg PO BIDPC With meals Magnesium Oxide 400 Mg Tab 400 Mg PO DIRECTED Lisinopril 5 Mg Tab 5 Mg PO DAILY Iron Complex (Iron Combinations) 1 Cap Cap 150 Mg PO DAILY Glipizide 5 Mg Tab 5 Mg PO BIDAC Take 30 minutes before a meal Furosemide 40 Mg Tab 40 Mg PO DAILY Docusate Sodium 100 Mg Cap 100 Mg PO BID Clopidogrel (Clopidogrel Bisulfate) 75 Mg Tab 75 Mg PO DAILY Carvedilol 6.25 Mg Tab 6.25 Mg PO BID Atorvastatin (Atorvastatin Calcium) 80 Mg Tab 80 Mg PO HS Aspirin 81 Mg Tabdr 81 Mg PO DAILY Active Ordered Medications Current Medications Medications (Trade) Dose Ordered Sig/Dilip Route PRN Reason Start Time Stop Time Status Last Admin Dose Admin Sodium Chloride (NS Flush) 2 ml UNSCH PRN IVF FLUSH AFTER USING IV ACCESS 02/07/18 01:15 Family History Brother: DM Otherwise unknown Family history Social History Lives in [place] Tobacco: smokes 1ppd for many years Alcohol: On occasion Occasionally smokes medical marijuana for back pain Physical Exam Vital Signs Vital Signs Date Time Temp Pulse Resp B/P (MAP) Pulse Ox O2 Delivery O2 Flow Rate FiO2 02/07/18 01:50 93 45 02/07/18 01:28 94 227/107 02/07/18 01:10 84 Nasal Cannula 4.00 02/07/18 01:10 92 45 02/07/18 01:10 92 BiPAP 45 02/07/18 01:03 98.9 65 36 84 Physical Exam GENERAL: Well-nourished, well-developed elderly gentleman in moderate respiratory distress SKIN: Warm and dry. HEAD: Normocephalic. EYES: No scleral icterus. No injection or drainage. NECK: Supple, trachea midline. No JVD or lymphadenopathy. CARDIOVASCULAR: Regular rate and rhythm without murmurs, gallops, or rubs. RESPIRATORY: Breath sounds equal bilaterally. No accessory muscle use. GASTROINTESTINAL: Abdomen soft, non-tender, nondistended. MUSCULOSKELETAL: No cyanosis, or edema. BACK: Nontender without obvious deformity. NEURO EXAM: GCS: 15 Mental Status: The patient is alert and oriented to person, place, and time with normal speech. Laboratory Laboratory Tests Test 02/07/18 01:20 02/07/18 01:38 White Blood Count 14.0 Red Blood Count 4.10 Hemoglobin 13.9 Hematocrit 40.6 Mean Corpuscular Volume 99.0 Mean Corpuscular Hemoglobin 34.0 Mean Corpuscular Hemoglobin Concent 34.3 Red Cell Distribution Width 13.5 Platelet Count 257 Mean Platelet Volume 9.4 Neutrophils (%) (Auto) 61.3 Lymphocytes (%) (Auto) 27.3 Monocytes (%) (Auto) 7.1 Eosinophils (%) (Auto) 3.6 Basophils (%) (Auto) 0.7 Neutrophils # (Auto) 8.6 Lymphocytes # (Auto) 3.8 Monocytes # (Auto) 1.0 Eosinophils # (Auto) 0.5 Basophils # (Auto) 0.1 CBC Comment DIFF FINAL Differential Comment Prothrombin Time 11.1 Prothromb Time International Ratio 1.1 Activated Partial Thromboplast Time 24.8 D-Dimer Quantitative (PE/DVT) 0.84 Blood Urea Nitrogen 18 Creatinine 1.05 Random Glucose 216 Total Protein 8.0 Albumin 4.0 Calcium Level 9.3 Magnesium Level 1.6 Alkaline Phosphatase 92 Aspartate Amino Transf (AST/SGOT) 24 Alanine Aminotransferase (ALT/SGPT) 34 Total Bilirubin 0.4 Sodium Level 141 Potassium Level 4.5 Chloride Level 104 Carbon Dioxide Level 28.0 Anion Gap 9 Estimat Glomerular Filtration Rate 69 Total Creatine Kinase 176 Creatine Kinase MB 2.9 Troponin I 0.04 B-Type Natriuretic Peptide 860 Blood Gas Puncture Site RT RADIAL Blood Gas Patient Temperature 98.6 Blood Gas HCO3 26 Blood Gas Base Excess -1.0 Blood Gas Oxygen Saturation 91 Arterial Blood pH 7.19 Arterial Blood Partial Pressure CO2 72 Arterial Blood Partial Pressure O2 87 Arterial Blood Oxygen Content 16.4 Arterial Blood Carboxyhemoglobin 1.9 Arterial Blood Methemoglobin 0.5 Blood Gas Hemoglobin 12.8 Oxygen Delivery Device BiPAP Blood Gas Ventilator Setting IPAP12/EPAP5 Blood Gas Inspired Oxygen 45 Result Diagram: 02/07/180 02/07/18119 Imaging Last 24 hours Impressions Chest X-Ray 02/07/18107 Signed Impressions: Service Date/Time: Wednesday, February 07, 2018 01:23 - CONCLUSION: Cardiomegaly. No focal airspace infiltrates. Leo Valadez MD Septic Shock Reassessment Septic shock perfusion: reassessment completed Caprini VTE Risk Assessment Caprini VTE Risk Assessment: Mod/High Risk (score >= 2) Caprini Risk Assessment Model Point Value = 1 Point Value = 2 Point Value = 3 Point Value = 5 Age 41-60 Minor surgery BMI > 25 kg/m2 Swollen legs Varicose veins or History of unexplained or recurrent spontaneous Oral contraceptives or hormone replacement Sepsis (< 1 month) Serious lung disease, including pneumonia (< 1 month) Abnormal pulmonary function Acute myocardial infarction Congestive heart failure (< 1 month) History of inflammatory bowel disease Medical patient at bed rest Age 61-74 Arthroscopic surgery Major open surgery (> 45 min) Laparoscopic surgery (> 45 min) Malignancy Confined to bed (> 72 hours) Immobilizing plaster cast Central venous access Age >= 75 History of VTE Family history of VTE Factor V Leiden Prothrombin [id number] Lupus anticoagulant Anticardiolipin antibodies Elevated serum homocysteine Heparin-induced thrombocytopenia Other congenital or acquired thrombophilia Stroke (< 1 month) Elective arthroplasty Hip, pelvis, or leg fracture Acute spinal cord injury (< 1 month) Prophylaxis Regimen Total Risk Factor Score Risk Level Prophylaxis Regimen 0-1 Low Early ambulation 2 Moderate Order ONE of the following: *Sequential Compression Device (SCD) *Heparin 5000 units SQ BID 3-4 Higher Order ONE of the following medications: *Heparin 5000 units SQ TID *Enoxaparin/Lovenox 40 mg SQ daily (WT < 150 kg, CrCl > 30 mL/min) *Enoxaparin/Lovenox 30 mg SQ daily (WT < 150 kg, CrCl > 10-29 mL/min) *Enoxaparin/Lovenox 30 mg SQ BID (WT < 150 kg, CrCl > 30 mL/min) AND/OR *Sequential Compression Device (SCD) 5 or more Highest Order ONE of the following medications: *Heparin 5000 units SQ TID (Preferred with Epidurals) *Enoxaparin/Lovenox 40 mg SQ daily (WT < 150 kg, CrCl > 30 mL/min) *Enoxaparin/Lovenox 30 mg SQ daily (WT < 150 kg, CrCl > 10-29 mL/min) *Enoxaparin/Lovenox 30 mg SQ BID (WT < 150 kg, CrCl > 30 mL/min) AND *Sequential Compression Device (SCD) Assessment and Plan Assessment and Plan Respiratory failure - Acute on chronic congestive heart failure - Gentle diuresis - BiPAP when necessary - Series of troponins and EKGs - CXR and ABG daily - Repeat 2-D echo CAD - Status post CABG - Monitor troponins and EKGs - Continue aspirin Plavix HTN - Coreg - Lisinopril HLD - Atorvastatin DM - Hold metformin while in the ICU - Insulin sliding scale - Glipizide GERD - Pepcid DVT GI prophylaxis - Teds SCDs - Lovenox - Pepcid Critical Care: The total critical care time was 35 minutes. Time to perform other separately billable procedures was not included in the critical care time. Vamshi Garcia MD Feb 07, 2018 3:42 am
[2018-02-07] MEDS ORDERED: BISACODYL 10 MG SUPP RECTAL PRN (03:45)
[2018-02-07] MEDS ORDERED: TEMAZEPAM 15 MG CAP PO PRN (03:45)
[2018-02-07] MEDS ORDERED: MAGNESIUM HYDROXIDE SUSP 30 ML CUP PO PRN (03:45)
[2018-02-07] MEDS ORDERED: SENNOSIDES 8.6 MG TAB PO PRN (03:45)
[2018-02-07] MEDS ORDERED: DEXTROSE 50% IN WATER 50 ML VIAL(D50) IV PUSH PRN (03:45)
[2018-02-07] MEDS ORDERED: MISCELLANEOUS NURSING INFORMATION XX SCH (03:45)
[2018-02-07] MEDS ORDERED: ACETAMINOPHEN 325 MG TAB PO PRN (03:45)
[2018-02-07] MEDS ORDERED: CHLORHEXIDINE GLUCONATE 2 % 1 PACK (2 CLOTHS) TOP PRN (03:45)
[2018-02-07] MEDS ORDERED: MORPHINE SULFATE 2 MG/ML INJ IV PUSH PRN (03:45)
[2018-02-07] MEDS ORDERED: LACTULOSE SYRUP 20 GM/30 ML CUP PO PRN (03:45)
[2018-02-07] MEDS ORDERED: SODIUM CHLORIDE 0.9% FLUSH 10 ML FLUSH IV FLUSH PRN (03:45)
[2018-02-07] MEDS ORDERED: RESP: ALBUTEROL 2.5 MG/IPRATROPIUM 0.5 MG NEB (PRN) INH (03:45)
[2018-02-07] MEDS ORDERED: ONDANSETRON HCL 4 MG/2 ML VIAL IV PUSH PRN (03:45)
[2018-02-07] MEDS ORDERED: GLUCAGON 1 MG/ML VIAL OTHER PRN (03:45)
[2018-02-07] MEDS: ENOXAPARIN SODIUM 40 MG/0.4 ML SYRINGE SQ SCH (04:00)
[2018-02-07] MEDS: CHLORHEXIDINE GLUCONATE 2 % 1 PACK (2 CLOTHS) TOP SCH (04:00)
[2018-02-07] MEDS: FUROSEMIDE 20 MG/2 ML VIAL IV PUSH SCH ×4 (04:10→20:26)
[2018-02-07] MEDS ORDERED: IOHEXOL 350 MG/ML 10 ML VIAL (for RAD DIAG) IVCONTRAST ONE (04:43)
--- NOTE | 2018-02-07 05:04 | RADRPT ---
EXAM DATE/TIME: 02/07/2018 04:43 [facility] COMPARISON: No previous studies available for comparison. INDICATIONS : Shortness of breath. IV CONTRAST: 75 cc Omnipaque 350 (iohexol) IV RADIATION DOSE: 23.11 CTDIvol (mGy) MEDICAL HISTORY : Congestive hearrt failure. Cardiovascular disease Hypertension. SURGICAL HISTORY : None. ENCOUNTER: Initial ACUITY: 1 day PAIN SCALE: 0/10 LOCATION: Bilateral chest TECHNIQUE: Volumetric scanning of the chest was performed using a pulmonary embolism protocol MIP images were re constructed. Using automated exposure control and adjustment of the mA and/or kV according to patien t size, radiation dose was kept as low as reasonably achievable to obtain optimal diagnostic quality images. DICOM format image data is available electronically for review and comparison. Follow-up recommendations for detected pulmonary nodules are based at a minimum on nodule size and pa tient risk factors according to Fleischner Society Guidelines. FINDINGS: PULMONARY ARTERIES: No filling defects are seen in the pulmonary arteries through the segmental level. LUNGS: Patchy area of partially consolidative infiltrates in the posterior lower lobes bilaterally. PLEURAE: Small bilateral pleural effusions measuring less than 2 cm. Some fluid tracks into the major fissure on the right side. MEDIASTINUM: There is good visualization of the great vessels of the middle mediastinum. No evidence of mediastin al or hilar adenopathy/mass. CONCLUSION: 1. The study is negative for pulmonary embolism. 2. Small bilateral pleural effusions and bilateral lower lobe patchy infiltrates. Leo Valadez MD on February 07, 2018 at 5:01 Board Certified Radiologist. This report was verified electronically.
[2018-02-07 05:43] LABS: BILIRUBIN, URINE NEG (NEG); BLOOD, URINE NEG (NEG); GLUCOSE,URINE 150 mg/dL (NEG); HYALINE CAST, URINE 13 /lpf (RARE); KETONE, URINE NEG (NEG); MUCUS URINE FEW /lpf (OCC); NITRITE,URINE NEG (NEG); URINE COLOR LIGHT-YELLOW (YELLW/STRAW); URINE LEUKOCYTE ESTERASE NEG (NEG)
[2018-02-07] MEDS: INSULIN ASPART SUPPLEMENTAL SCALE SQ SCH ×4 (08:00→20:26)
[2018-02-07] MEDS: CLOPIDOGREL 75 MG TAB PO SCH (08:10)
[2018-02-07] MEDS: SPIRONOLACTONE 25 MG TAB PO SCH (08:10)
[2018-02-07] MEDS: FAMOTIDINE 20 MG/2 ML VIAL IV PUSH SCH ×2 (08:11→20:26)
[2018-02-07] MEDS: CARVEDILOL 6.25 MG TAB PO SCH ×2 (08:11→20:27)
[2018-02-07] MEDS: ASPIRIN EC 81 MG TABEC PO SCH (08:11)
[2018-02-07] MEDS: glipiZIDE 5 MG TAB PO SCH ×2 (08:11→16:00)
[2018-02-07] MEDS: SODIUM CHLORIDE 0.9% FLUSH 10 ML FLUSH IV FLUSH SCH ×2 (08:11→20:27)
[2018-02-07] MEDS: DOCUSATE SODIUM 50 MG/SENNA 8.6 MG TAB PO SCH ×2 (08:11→20:32)
[2018-02-07] MEDS: MULTIVITAMINS/MINERALS THERAPEUTIC TAB PO SCH (08:14)
[2018-02-07] MEDS: LISINOPRIL 5 MG TAB PO SCH (08:15)
--- NOTE | 2018-02-07 08:44 | EKG ---
Date Performed: 02/07/2018 Time Performed: 01:06:36 PTAGE: 72 years EKG: Sinus rhythm WITH SINUS ARRHYTHMIA RIGHT AXIS DEVIATION NONSPECIFIC INTRAVENTRICULAR CONDUCTION DELAY ABNORMAL EC G NO PREVIOUS TRACING DOCTOR: Osmin Carrillo Interpretating Date/Time 02/07/2018 08:27:36
--- NOTE | 2018-02-07 14:48 | EKG ---
Date Performed: 02/07/2018 Time Performed: 09:38:47 PTAGE: 72 years EKG: Sinus rhythm WITH FREQUENT SUPRAVENTRICULAR PREMATURE COMPLEXES LEFT BUNDLE BRANCH BLOCK ABNORMAL ECG PREVIOUS TRACING : 02/07/2018 01.06 No significant change from previous tracing noted. DOCTOR: Osmin Carrillo Interpretating Date/Time 02/07/2018 14:46:12
--- NOTE | 2018-02-07 17:29 | ECHRPT ---
Indication: HEART FAILURE CONCLUSIONS The left ventricular systolic function is [id number] reduced with an estimated ejection fra ction in the range of 35-40%. Normal left ventricular size. Mild concentric left ventricular hypertrophy. No regional wall motion abnormalities are present. The left atrial size is mildly dilated. Trace mitral valve regurgitation. Aortic valve sclerosis is present. Trace aortic valve regurgitation. There is trace tricuspid valve regurgitation. The estimated pulmonary arterial pressure is 44.8 mmHg. Trivial pulmonary valve regurgitation. BP: 167 / 68 HR: 61 Rhythm: Sinus MEASUREMENTS (Male / Female) Normal Values Technical Quality:Fair 2D ECHO LV Diastolic Diameter PLAX 5.3 cm 4.2 - 5.9 / 3.9 - 5.3 cm LV Systolic Diameter PLAX 4.6 cm IVS Diastolic Thickness 1.2 cm 0.6 - 1.0 / 0.6 - 0.9 cm LVPW Diastolic Thickness 1.2 cm 0.6 - 1.0 / 0.6 - 0.9 cm LV Relative Wall Thickness 0.5 LVOT Diameter 2.0 cm LA Systolic Diameter LX 4.3 cm 3.0 - 4.0 / 2.7 - 3.8 cm LV Ejection Fraction MOD 4C 43.1 % LV Cardiac Index MOD 4C 2387.0 cm/minm LV Ejection Fraction 4C AL 42.5 % LV Cardiac Index 4C AL 2426.8 cm/minm M-MODE Aortic Root Diameter MM 2.4 cm LA Systolic Diameter MM 4.2 cm LA Ao Ratio MM 1.8 AV Cusp Separation MM 1.7 cm DOPPLER AV Peak Velocity 206.0 cm/s AV Peak Gradient 17.0 mmHg LVOT Peak Velocity 139.0 cm/s LVOT Peak Gradient 7.7 mmHg AV Area Cont Eq pk 2.1 cm MV Area PHT 2.1 cm Mitral E Point Velocity 90.8 cm/s Mitral A Point Velocity 87.9 cm/s Mitral E to A Ratio 1.0 LV E' Lateral Velocity 8.4 cm/s Mitral E to LV E' Lateral Ratio 10.8 LV E' Septal Velocity 5.7 cm/s Mitral E to LV E' Septal Ratio 16.1 TR Peak Velocity 295.0 cm/s TR Peak Gradient 34.8 mmHg Right Atrial Pressure 10.0 mmHg Pulmonary Artery Systolic Pressu 44.8 mmHg Right Ventricular Systolic Press 44.8 mmHg PV Peak Velocity 138.0 cm/s PV Peak Gradient 7.6 mmHg FINDINGS LEFT VENTRICLE The left ventricular systolic function is [id number] reduced with an estimated ejection fra ction in the range of 35-40%. Normal left ventricular size. Mild concentric left ventricular hypertrophy. No regional wall motion abnormalities are present. RIGHT VENTRICLE Normal right ventricular size and systolic function. LEFT ATRIUM The left atrial size is mildly dilated. RIGHT ATRIUM The right atrial size is normal. ATRIAL SEPTUM Normal atrial septal thickness without atrial level shunting by limited color doppler interrogation. AORTA The aortic root and proximal ascending aorta are normal in size on limited imaging. MITRAL VALVE Trace mitral valve regurgitation. AORTIC VALVE Trileaflet aortic valve. Aortic valve sclerosis is present. Trace aortic valve regurgitation. TRICUSPID VALVE Structurally normal tricuspid valve. There is trace tricuspid valve regurgitation. The estimated pulmonary arterial pressure is 44.8 mmHg. PULMONARY VALVE Trivial pulmonary valve regurgitation. VESSELS The inferior vena cava is normal in size. PERICARDIUM No pericardial effusion. Jah Gauthier MD, FACC (Electronically Signed) Final Date:07 February 2018 17:29
[2018-02-07] MEDS: INSULIN DETEMIR 100 UNITS/ML VIAL SQ SCH (20:26)
[2018-02-07] MEDS ORDERED: ATORVASTATIN 80 MG TAB PO SCH (21:00)
[2018-02-08] VITALS (9 sets, daily range): BP systolic 140–158; BP diastolic 63–66; PULSE 51–61; RESP 16–29; TEMP 97.4–98; O2SAT 94–97
[2018-02-08] MEDS: ENOXAPARIN SODIUM 40 MG/0.4 ML SYRINGE SQ SCH (02:54)
[2018-02-08] MEDS: FUROSEMIDE 20 MG/2 ML VIAL IV PUSH SCH ×2 (02:54→09:45)
[2018-02-08] MEDS: CHLORHEXIDINE GLUCONATE 2 % 1 PACK (2 CLOTHS) TOP SCH (04:00)
--- NOTE | 2018-02-08 04:58 | RADRPT ---
EXAM DATE/TIME: 02/08/2018 02:31 [facility] COMPARISON: CHEST SINGLE AP, February 07, 2018, 1:23. INDICATIONS : Shortness of breath. MEDICAL HISTORY : Hypertension. Diabetes mellitus type II. Congestive heart failure. SURGICAL HISTORY : CABG. Cardiac catheterization ENCOUNTER: Subsequent ACUITY: 2 days PAIN SCORE: Non-responsive. LOCATION: Bilateral chest FINDINGS: The lungs are symmetrically aerated. No focal infiltrates seen in the right lung. Patchy areas of i nfiltrate in the left lower lung.. The heart is normal size. CONCLUSION: Mild patchy infiltrates in the left lower lung. Leo Valadez MD on February 08, 2018 at 4:55 Board Certified Radiologist. This report was verified electronically.
[2018-02-08 05:36] LABS: AUTOMATED NEUTROPHIL # 9.6 TH/MM3 (1.8-7.7); BASOPHIL % 0.4 % (0.0-2.0); EOSINOPHIL % 0.3 % (0.0-4.0); HEMATOCRIT 33.4 % (39.0-51.0); HEMOGLOBIN 11.6 GM/DL (13.0-17.0); LYMPH % 19.7 % (9.0-44.0); LYMPHOCYTE # 2.6 TH/MM3 (1.0-4.8); MEAN CELL VOLUME 98.1 FL (80.0-100.0); MEAN CORPUSCULAR HEMOGLOBIN 34.1 PG (27.0-34.0); MEAN CORPUSCULAR HGB CONC 34.8 % (32.0-36.0); MEAN PLATELET VOLUME 9.2 FL (7.0-11.0); MONO % 6.3 % (0.0-8.0); MONOCYTE # 0.8 TH/MM3 (0-0.9); NEUT % 73.3 % (16.0-70.0); PLATELET COUNT 183 TH/MM3 (150-450); RED CELL DISTRIBUTION WIDTH 13.4 % (11.6-17.2); WHITE BLOOD COUNT 13.1 TH/MM3 (4.0-11.0)
[2018-02-08 05:42] LABS: INTERNATIONAL NORMALIZED RATIO 1.2 RATIO; PROTHROMBIN TIME - PATIENT 11.8 SEC (9.8-11.6)
[2018-02-08 06:15] LABS: ALBUMIN 3.4 GM/DL (3.4-5.0); ALKALINE PHOSPHATASE 71 U/L (45-117); ALT (GPT) 25 U/L (12-78); AST (GOT) 10 U/L (15-37); BICARBONATE 29.9 MEQ/L (21.0-32.0); BLOOD UREA NITROGEN 27 MG/DL (7-18); CALCIUM 8.7 MG/DL (8.5-10.1); CHLORIDE 101 MEQ/L (98-107); CREATININE 1.11 MG/DL (0.60-1.30); GLOMERULAR FILTRATION RATE 65 ML/MIN (>89); GLUCOSE,RANDOM 118 MG/DL (74-106); MAGNESIUM 1.6 MG/DL (1.5-2.5); PHOSPHORUS 4.5 MG/DL (2.5-4.9); SODIUM (NA) 140 MEQ/L (136-145); TOTAL BILIRUBIN ADULT 0.5 MG/DL (0.2-1.0); TOTAL PROTEIN 6.7 GM/DL (6.4-8.2)
[2018-02-08] MEDS ORDERED: POTASSIUM CHLORIDE 25 MEQ EFFERVESCENT TAB PO ONE (07:30)
[2018-02-08] MEDS: INSULIN ASPART SUPPLEMENTAL SCALE SQ SCH (08:00)
[2018-02-08] MEDS: LISINOPRIL 5 MG TAB PO SCH (08:02)
[2018-02-08] MEDS: glipiZIDE 5 MG TAB PO SCH (08:02)
[2018-02-08] MEDS: SPIRONOLACTONE 25 MG TAB PO SCH (08:02)
[2018-02-08] MEDS: ASPIRIN EC 81 MG TABEC PO SCH (08:02)
[2018-02-08] MEDS: MULTIVITAMINS/MINERALS THERAPEUTIC TAB PO SCH (08:02)
[2018-02-08] MEDS: FAMOTIDINE 20 MG/2 ML VIAL IV PUSH SCH (08:03)
[2018-02-08] MEDS: SODIUM CHLORIDE 0.9% FLUSH 10 ML FLUSH IV FLUSH SCH (08:03)
[2018-02-08] MEDS: CLOPIDOGREL 75 MG TAB PO SCH (08:03)
[2018-02-08] MEDS: CARVEDILOL 6.25 MG TAB PO SCH (08:03)
[2018-02-08] MEDS: DOCUSATE SODIUM 50 MG/SENNA 8.6 MG TAB PO SCH (08:04)
[2018-02-08] MEDS: INSULIN DETEMIR 100 UNITS/ML VIAL SQ SCH (09:00)
--- NOTE | 2018-02-08 09:07 | HHI.CCPN ---
Subjective Remarks/Hospital Course 72 year old male presents with a history of shortness of breath that began just after 10 PM tonight. The patient is visiting from [place]. The patient has a history of coronary artery disease status post coronary artery bypass grafting in 2016 and a prior history of congestive heart failure. He reports that he forgot to take his medications today. He denies having any chest pain, however he arrives with severe shortness of breath. The patient's O2 saturation on room air was 84% with tachypnea and work of breathing noted with conversational dyspnea. The patient was diaphoretic on arrival. The patient does report having a dry cough. The patient reports that he does smoke 1 pack of cigarettes daily. He denies using any inhalers. He reports that he is on diuretics. He reports that he has had some increased lower extremity edema. In the emergency department he was placed on facemask BiPAP, received some diuretics with significant improvement of symptoms. Subjective: 02/08: No acute events overnight. Patient denies angina, maintain hemodynamically stable. Patient was noted to have elevated blood glucose levels yesterday Levemir 7 units twice a day was initiated. Blood glucose well controlled. Patient tolerating diabetic diet. Objective Vital Signs Date Time Temp Pulse Resp B/P (MAP) Pulse Ox O2 Delivery O2 Flow Rate FiO2 02/08/18 08:44 97 21 02/08/18 08:01 98.0 54 29 158/66 (96) 02/07/18 09:07 Nasal Cannula 3.00 Intake and Output 02/08/18 02/08/18 02/09/18 08:00 16:00 00:00 Intake Total 720 ml Output Total 1250 ml Balance -530 ml Result Diagram: 02/08/18 0510 02/08/18 0510 Imaging Last 24 hours Impressions Chest X-Ray 02/07/18 0108 Signed Impressions: Service Date/Time: Wednesday, February 07, 2018 01:23 - CONCLUSION: Cardiomegaly. No focal airspace infiltrates. Leo Valadez MD Objective Remarks GENERAL: Well-nourished, well-developed elderly gentleman in no acute distress SKIN: Warm and dry. HEAD: Normocephalic. EYES: No scleral icterus. No injection or drainage. NECK: Supple, trachea midline. No JVD or lymphadenopathy. CARDIOVASCULAR: Regular rate and rhythm without murmurs, gallops, or rubs. RESPIRATORY: Breath sounds equal bilaterally. No accessory muscle use. GASTROINTESTINAL: Abdomen soft, non-tender, nondistended. MUSCULOSKELETAL: No cyanosis, or edema. BACK: Nontender without obvious deformity. NEURO EXAM: GCS: 15 Mental Status: The patient is alert and oriented to person, place, and time with normal speech. A/P Assessment and Plan Respiratory failure-resolved - Acute on chronic congestive heart failure - Gentle diuresis - BiPAP when necessary - Series of troponins and EKGs - CXR and ABG daily - 02/07 2-D echo-EF 3540 percent, mild LAE, trace MVR, trace TVR, trivial PVR, PAP 44.8 CAD - Status post CABG - Monitor troponins and EKGs - Continue aspirin Plavix HTN - Coreg - Lisinopril HLD - Atorvastatin DM - Hold metformin while in the ICU - Insulin sliding scale -02/07-Levemir 7 units twice a day - Glipizide (home med) GERD - Pepcid DVT GI prophylaxis - Teds SCDs - Lovenox - Pepcid Dispo: Level II follow-up. Plan transfer to [facility] in a.m.. Transfer to [facility] floor upon bed availability Physician Vanessa Johnson MD Feb 08, 2018 09:07
== END 2018-02-08 12:45 | disposition home or self-care (01) | DRG 291 ==
LOC: NEPC 01:01 → NEDA 02:58 → HIME 05:05
PROVIDERS: ADMIT Internal Medicine Critical Care Medicine; ATTEND Internal Medicine Critical Care Medicine
PROC: 5A09357 Assistance with Respiratory Ventilation, Less than 24 Consecutive Hours, Continuous Positive Airway Pressure (ICD-10-PCS; principal; 2018-02-07)
DX: I11.0 Hypertensive heart disease with heart failure (principal); J96.91 Respiratory failure, unspecified with hypoxia; I48.4 Atypical atrial flutter; E11.65 Type 2 diabetes mellitus with hyperglycemia; R15.9 Full incontinence of feces; I16.1 Hypertensive emergency; E78.5 Hyperlipidemia, unspecified; I25.10 Atherosclerotic heart disease of native coronary artery without angina pectoris; I50.9 Heart failure, unspecified; K21.9 Gastro-esophageal reflux disease without esophagitis; M54.9 Dorsalgia, unspecified; G89.29 Other chronic pain; I44.7 Left bundle-branch block, unspecified; R32 Unspecified urinary incontinence; I49.1 Atrial premature depolarization; M19.90 Unspecified osteoarthritis, unspecified site; F17.210 Nicotine dependence, cigarettes, uncomplicated; Z79.84 Long term (current) use of oral hypoglycemic drugs; Z95.1 Presence of aortocoronary bypass graft; Z95.5 Presence of coronary angioplasty implant and graft
CPT/HCPCS: 36600; 71045; 71275; 80053; 81001; 82550; 82552; 82805; 83735; 83880; 84100; 84484; 85025; 85379; 85610; 85730; 87641; 93005; 93306; 94002; 96374; 96375; J1650; J1815; J1940; J2930; Q9967